=== PATIENT | female | born 1950 | race Hispanic/Latino ===

== ENCOUNTER 2021-03-05 08:12 | Outpatient (CLI) | payer MEDICARE, OTHER, SELFPAY ==
--- NOTE | ~2021-03-05 | MM_ITS ---
EXAMINATION: MM screening [facility] BI w arnol HISTORY: Screening mammogram TECHNIQUE: Craniocaudal and mediolateral oblique 3-D tomosynthesis images were obtained and synthetic 2-D images were generated. CAD analysis was submitted and interpreted. COMPARISON: 10/20/2018, 11/07/2015, 07/26/2014 BREAST PARENCHYMAL COMPOSITION: There are scattered areas of fibroglandular density. FINDINGS: There is stable architectural distortion in the right breast at the site of prior excisiona l biopsy. There is no evidence of suspicious mass, calcification, or architectural distortion to sugg est malignancy in either breast. There has been no suspicious interval change. IMPRESSION: 1. No mammographic evidence of malignancy. 2. Recommend routine screening mammography in one year. BI-RADS Category 2: Benign finding(s). Reviewed, dictated and finalized at location A.
--- NOTE | ~2021-03-05 | DEXA_ITS ---
Bone Density Report Name: Casie Jessica Age: 70 Sex: Female Ethnicity: White Date of : 1950 Indication: postmenopausal osteoporosis; monitoring treatment; height loss; Referring Provider: ADENIKE HOLLOWAY Study: Bone densitometry was performed. Exam Date: March 05, 2021 Accession number: [id number] Bone Density: Region BMD T-score Z-score Classification AP Spine (L1-L4) 0.812 -2.1 -0.1 Osteopenia Femoral Neck (Left) 0.662 -1.7 0.1 Osteopenia Total Hip (Left) 0.768 -1.4 0.0 Osteopenia Total Hip Bilateral Avg 0.759 -1.5 -0.1 Osteopenia Femoral Neck (Right) 0.679 -1.5 0.2 Osteopenia Total Hip (Right) 0.748 -1.6 -0.1 Osteopenia World Health Organization criteria for BMD impression classify patients as: Normal (T-score at or above -1.0), Osteopenia (T-score between -1.0 and -2.5), or Osteoporosis (T-score at or below -2.5). 10-year Fracture Risk: FRAX not reported because: Treated for osteoporosis Previous Exams: Region Exam Age BMD T-score BMD Change BMD Change Date g/cm2 vs Baseline vs Previous AP Spine(L1-L4) 03/05/2021 70 0.812 -2.1 0.081(11.0%)# 0.046(6.1%)* 10/20/2018 67 0.765 -2.6 0.034(4.7%)# 0.022(3.0%) 09/27/2016 65 0.743 -2.8 0.012(1.6%)# -0.017(-2.2%) 07/26/2014 63 0.760 -2.6 0.029(3.9%)# -0.007(-0.9%)# 03/17/2012 61 0.767 -2.5 0.035(4.8%)# 0.035(4.8%)# 01/08/2008 57 0.731 -2.9 Total Hip(Left) 03/05/2021 70 0.768 -1.4 0.027(3.7%)# 0.008(1.0%) 10/20/2018 67 0.761 -1.5 0.020(2.7%)# -0.004(-0.5%) 09/27/2016 65 0.765 -1.5 0.024(3.2%)# -0.010(-1.2%) 07/26/2014 63 0.774 -1.4 0.033(4.5%)# 0.014(1.9%)# 03/17/2012 61 0.760 -1.5 0.019(2.6%)# 0.019(2.6%)# 01/08/2008 57 0.741 -1.6 Total Hip(Right) 03/05/2021 70 0.748 -1.6 0.002(0.2%)# -0.013(-1.7%) 10/20/2018 67 0.761 -1.5 0.015(2.0%)# 0.048(6.7%)* 09/27/2016 65 0.713 -1.9 -0.033(-4.4%)# 0.009(1.3%) 07/26/2014 63 0.704 -2.0 -0.042(-5.7%)# -0.042(-5.6%)# 03/17/2012 61 0.746 -1.6 0.000(0.0%)# 0.000(0.0%)# 01/08/2008 57 0.746 -1.6 *Denotes significance at 95% confidence level, LSC for AP Spine = 0.022 g/cm2, LSC for Total Hip = 0.027 g/cm2 Clinical Information Provided by Patient: Is being treated for osteoporosis Has used the following medications: Prolia (i.e. denosumab), Vitamin D Patient maximum height was 64 Menopause Age: 54 Drinks caffeinated beverages Onset of menses at age 13 Nu
== END 2021-03-05 08:13 | disposition home or self-care (01) ==
LOC: ANHIMG 08:14
PROVIDERS: PCP Physician Assistant; Visit Provider Obstetrics & Gynecology
DX: Z12.31 Encounter for screening mammogram for malignant neoplasm of breast (principal); M81.0 Age-related osteoporosis without current pathological fracture; M85.88 Other specified disorders of bone density and structure, other site; M85.852 Other specified disorders of bone density and structure, left thigh; M85.851 Other specified disorders of bone density and structure, right thigh
CPT/HCPCS: 77063; 77067; 77080

== ENCOUNTER 2021-07-10 16:41 | Emergency (ER) | payer MEDICARE, OTHER, SELFPAY ==
--- NOTE | ~2021-07-10 | CT_ITS ---
EXAMINATION: CT chest abdomen pelvis w con DATE: 07/10/2021 18:54 INDICATION: Chest and abdominal pain. TECHNIQUE: Computed tomography (CT) of the chest, abdomen, and pelvis was performed with 100 mL Omnip aque 350 intravenous contrast. Automated exposure control and iterative reconstruction technique were employed. The dose-length product was 364.40 mGy-cm. COMPARISON: None FINDINGS: CHEST CT: The visualized portions of the lung bases demonstrate mild atelectasis. No pleural effusion. The hear t size is normal. There are coronary artery calcifications. No pericardial effusion. There is a chron ic compression fracture of T8. ABDOMEN/PELVIS CT: There are cysts in the liver measuring up to 1.4 cm. The gallbladder, spleen, pancreas, and adrenal g lands are normal. There are cysts in the kidneys measuring up to 14 mm on the left. There is a 2.0 cm mass in the cervix of the uterus. There are no dilated loops of bowel. There is diverticulosis of th e colon without evidence of diverticulitis. The appendix is normal. There are no pathologically enlar ged lymph nodes. There is no free intraperitoneal fluid. There is severe lower lumbar spondylosis. IMPRESSION: 1. 2.0 cm mass in the cervix of the uterus suspicious for malignancy. Reviewed, dictated and finalized at location A. T OPERATIONS CLERK
[2021-07-10 16:48] VITALS: BP 115/75; PULSE 89; RESP 14; TEMP 37.2; O2SAT 98
[2021-07-10 17:50] LABS: Basophils Percent Auto 0.3 % (0.2-1.2); Eosinophils Absolute Auto 0.2 K/mm3 (0-0.3); Eosinophils Percent Auto 2.4 % (0-4.4); Hematocrit 37.4 % (37.0-47.0); Hemoglobin 12.5 g/dL (12.0-15.0); Immature Granulocyte Absolute 0.02 K/mm3 (0.00-0.031); Immature Granulocyte Percent A 0.3 % (0-0.5); Lymphocytes Absolute Auto 2.18 K/mm3 (0.9-3.2); Lymphocytes Percent Auto 34.9 % (18.3-44.2); Mean Corpuscular HGB Conc 33.4 g/dl (32-36); Mean Corpuscular Volume 89.7 fl (80-100); Mean Platelet Volume 8.1 fl (7.4-10.4); Monocytes Absolute Auto 0.5 K/mm3 (0.1-0.6); Monocytes Percent Auto 8.7 % (2.6-8.5); Neutrophils Absolute Auto 3.3 K/mm3 (1.3-6.7); Neutrophils Percent Auto 53.4 % (45.5-73.1); Platelet Count Result 251 k/mm3 (150-375); Red Blood Count 4.17 M/mm3 (4.2-5.4); Red Cell Distribution Width 14.6 % (11.5-14.5); White Blood Count 6.2 K/mm3 (4.5-10.0)
[2021-07-10 18:02] LABS: Alanine Aminotransferase 20 U/L (4-35); Albumin Level 4.4 g/dL (3.5-5.1); Alkaline Phosphatase 115 U/L (38-126); Anion Gap 8 mmol/L (8-16); Aspartate Amino Transferase 26 U/L (14-36); Bilirubin,Total 0.1 mg/dL (0.2-1.3); Blood Urea Nitrogen 17 mg/dL (7-17); Calcium 9.4 mg/dL (8.4-10.2); Carbon Dioxide 23 mmol/L (22-30); Chloride 109 mmol/L (98-107); Estimated Glomerular Filt Rate > 60; Glucose 103 mg/dL (65-110); Lipase 151 U/L (23-300); Potassium 3.9 mmol/L (3.4-5.0); Sodium 140 mmol/L (137-145)
[2021-07-10 18:22] LABS: Add Urine Microscopic? YES; Appearance Urine Clear (Clear); Bilirubin Urine Negative (Negative); Blood Urine Negative (Negative); Color Urine Yellow (Yellow); Glucose Urine UA Negative (Negative); Ketones Urine Negative (Negative); Leukocyte Esterase Ur Negative LEU/UL (Negative); Mucus Urine Rare /lpf; Nitrate Urine Negative (Negative); Protein Urine Negative (Negative); Specific Grav Ur 1.021 (1.001-1.035); Squamous Epithelial Cell Urine Rare /hpf (Few); WBC Urine 0-3 /hpf
--- NOTE | 2021-07-10 18:33 | ECG_ITS ---
Measurements Intervals Alexis Rate: 65 P: 16 OH: 165 QRS: 5 QRSD: 98 T: 15 QT: 419 QTc: 436 Interpretive Statements SINUS RHYTHM NORMAL ECG Electronically Signed On 07-10-2021 20:04:47 PATIENT SERVICES MANAGER by Bay Cabello D.O.
--- NOTE | 2021-07-10 18:33 | ED.ABDPAIN ---
HPI - Abdominal Pain General Chief Complaint: Abdominal Pain Stated Complaint: abd pain Time Seen by Provider: 07/10/21 17:15 Source: patient Mode of arrival: ambulatory Limitations: no limitations History of Present Illness HPI narrative: Patient presents for evaluation of pain in bilateral lower ribs for the last week. She states the pain is intermittent, and described as the sensation of a muscle tightening when you run too fast rated 7/10 in severity. Pain is more noticeable at times including when laying down, with certain movements and while sitting in a chair as she currently is. She denies any fever, chills, nausea, vomiting, change in bowel pattern, urinary symptoms. She states that she had started to workout using an exercise program VS assume the week prior. She had performed exercise Friday, , Friday of that week. The following Friday she exercised and Friday she implemented the use of some type of abdominal binder for support. She states that she on.y was able to complete half the exercise program that day as pain was interfering. She has taken some NSAIDs for pain and has also taken a bath in epsom salt without much improvement. She does consume wine but denies any tobacco or marijuana use. Surgical history for c section and what sounds to be a bladder sling. Related Data Home Medications Medication Instructions Recorded Confirmed coenzyme Q10 [CoQ-10] 30 mg PO DAILY 09/22/19 10/12/20 cyanocobalamin (vitamin B-12) 1,000 mcg PO DAILY 09/22/19 10/12/20 [Vitamin B-12] rv-qd-ktrx-FA-Ca carb-vit K 1 tablet PO DAILY 09/22/19 10/12/20 [One-A-Day Womens Formula] pyridoxine (vitamin B6) 25 mg PO DAILY 09/22/19 10/12/20 simvastatin 20 mg PO DAILY 09/22/19 10/12/20 cholecalciferol (vitamin D3) 125 125 mcg PO DAILY 10/12/20 10/12/20 mcg (5,000 unit) capsule turmeric root extract 500 mg 500 mg PO DAILY 10/12/20 10/12/20 capsule valsartan-hydrochlorothiazide 1 tablet PO DAILY 07/10/21 Allergies Allergy/AdvReac Type Severity Reaction Status Date / Time No Known Allergies Allergy Verified 07/10/21 17:01 Review of Systems Review of Systems: CONSTITUTIONAL: Denies fever, chills, or sweats. EYES: Denies visual changes, redness, or discharge. ENT: Denies rhinorrhea, congestion, sore throat, or otalgia. CARDIOVASCULAR: Reports pain in bilateral lower ribs anteriorly. Denies chest pain otherwise. Denies palpitations, or edema. RESPIRATORY: Denies cough or dyspnea. GASTROINTESTINAL: Reports pain in bilateral upper quadrants. Denies nausea, vomiting, or diarrhea. GENITOURINARY: Denies dysuria or hematuria. SKIN: Denies rash or itching. MUSCULOSKELETAL: Denies back pain, joint pain, or myalgia. NEUROLOGIC: Denies headache, numbness, dizziness, or weakness. PSYCHIATRIC: Denies anxiety or depression. PMFSH Past Medical History Medical History High cholesterol Hypertension Surgical History Surgical History H/O breast surgery History of 2 sections Family History Family History Father Family history of elevated blood lipids Cerebrovascular accident Mother Cerebrovascular accident, Onset Age: 199 Patient's mother is Social History Social History Smoking status: Never smoker Second hand tobacco smoke exposure: No Alcohol intake: current Substance use: never Living arrangements: with family Gender identity (if verbalized by the patient): Female Sexual Orientation (if Verbalized by the Patient): Straight or Heterosexual Spiritual care concerns: No Exam Narrative: GENERAL: Well-appearing, well-nourished, and in no acute distress. HEAD: Normocephalic, atraumatic. EYES: PERRLA and EOMI. ENT: Nares clear, no
[2021-07-10 19:15] LABS: Creatine Kinase 51 U/L (30-135)
[2021-07-10 19:16] LABS: Lactic Acid Reflex 0.7 mmol/L (0.7-2.1)
[2021-07-10 19:28] LABS: Troponin I < 0.012 ng/mL (0.000-0.034)
[2021-07-10 20:31] VITALS: BP 117/78; PULSE 90; RESP 18; O2SAT 98
[2021-07-10] MEDS: HYDROcodone/acetaminophen (*CRX) 5-325 MG TABLET 1 TAB PO (20:37)
== END 2021-07-10 20:47 | disposition home or self-care (01) ==
PROVIDERS: Emergency Medicine; Emergency Provider Nurse Practitioner; PCP Physician Assistant
DX: E78.00 Pure hypercholesterolemia, unspecified (principal); N85.8 Other specified noninflammatory disorders of uterus; I10 Essential (primary) hypertension; R07.89 Other chest pain
CPT/HCPCS: 36415; 71260; 74177; 80053; 81001; 82550; 83605; 83690; 84484; 85025; 93005; 99284; A9270; Q9967

== ENCOUNTER 2021-07-16 12:20 | Outpatient (CLI) | payer MEDICARE, SELFPAY ==
--- NOTE | ~2021-07-16 | US_ITS ---
EXAMINATION: US pelvic complete w TV DATE: 07/16/2021 13:01 INDICATION: Cervical mass on recent CT TECHNIQUE: Multiple transabdominal and endovaginal sonographic images of the pelvis were obtained. COMPARISON: CT, 07/10/2021 FINDINGS: The uterus measures 5.7 x 3.6 x 1.9 cm. The endometrial complex measures 1 mm. There is a 2 .0 x 2.4 x 1.8 cm cystic lesion of the cervix. No abnormal associated vascularity is identified. The ovaries are not visualized however no adnexal abnormality is seen. There is no free fluid in the pelv is. IMPRESSION: 1. Cystic lesion of the cervix. Direct visualization is recommended. Reviewed, dictated and finalized at location A. TRICAL LINE WORKER
== END 2021-07-16 12:21 | disposition home or self-care (01) ==
LOC: ANHIMG 12:30
PROVIDERS: PCP Physician Assistant; Visit Provider Obstetrics & Gynecology
DX: N85.8 Other specified noninflammatory disorders of uterus (principal)
CPT/HCPCS: 76830; 76856

== ENCOUNTER 2022-03-20 15:12 | Outpatient (CLI) | payer MEDICARE, OTHER, SELFPAY ==
--- NOTE | ~2022-03-20 | MM_ITS ---
EXAMINATION: MM screening [facility] BI w arnol HISTORY: Screening TECHNIQUE: Craniocaudal and mediolateral oblique 3-D tomosynthesis images were obtained and synthetic 2-D images were generated. CAD analysis was submitted and interpreted. COMPARISON: No prior mammogram is available for comparison at this institution. BREAST PARENCHYMAL COMPOSITION: Breast composed of scattered areas of fibroglandular density FINDINGS: The right breast is stable without evidence for malignancy. There is a new cluster of indet erminate calcifications in the upper outer quadrant of the left breast. IMPRESSION: 1. New cluster of indeterminate left breast calcifications, upper outer quadrant in the middle third. 2. Magnification views are recommended. BI-RADS Category 0: Incomplete: Needs additional imaging evaluation. Reviewed, dictated and finalized at location A. IMPRESSION: 1. New cluster of indeterminate left breast calcifications, upper outer quadran t in the middle third. 2. Magnification views are recommended. BI-RADS Category 0: Incomplete: Needs additional imaging evaluation.
== END 2022-03-20 15:13 | disposition home or self-care (01) ==
PROVIDERS: PCP Physician Assistant; Visit Provider Obstetrics & Gynecology
DX: Z12.31 Encounter for screening mammogram for malignant neoplasm of breast (principal); R92.8 Other abnormal and inconclusive findings on diagnostic imaging of breast
CPT/HCPCS: 77063; 77067

== ENCOUNTER 2022-04-01 13:01 | Outpatient (CLI) | payer MEDICARE, OTHER, SELFPAY ==
--- NOTE | ~2022-04-01 | MMUS_ITS ---
EXAMINATION: MM diagnostic [facility] LT w arnol, US breast LT limited HISTORY: Follow-up left breast asymmetry TECHNIQUE: Additional 3-D tomosynthesis images of the left breast were performed and synthetic 2-D im ages were generated. CAD analysis was submitted and interpreted. High resolution Limited left breast ultrasound was performed. COMPARISON: 03/20/2022 and 03/05/2021 BREAST PARENCHYMAL COMPOSITION: Breast composed of scattered areas of fibroglandular density FINDINGS: MAMMOGRAPHIC FINDINGS: There are no discrete masses are identified. There is focal asymmetry superiorly in the left breast o n mediolateral view. No suspicious calcifications or architectural distortion. ULTRASOUND: Limited left breast ultrasound: Normal heterogeneous echotexture without focal solid or cystic mass. IMPRESSION: 1. Probable benign focal asymmetry superiorly in the left breast on mediolateral view. No sonographic correlate. 2. Recommend 6 month follow-up diagnostic left mammogram. BI-RADS category 3, probably benign findings. Reviewed, dictated and finalized at location A. IMPRESSION: 1. Probable benign focal asymmetry superiorly in the left breast on mediolatera l view. No sonographic correlate. 2. Recommend 6 month follow-up diagnostic left mammogram. BI-RADS category 3, probably benign findings.
== END 2022-04-01 13:02 | disposition home or self-care (01) ==
LOC: ANHIMG 13:03
PROVIDERS: PCP Physician Assistant; Visit Provider Obstetrics & Gynecology
DX: R92.8 Other abnormal and inconclusive findings on diagnostic imaging of breast (principal)
CPT/HCPCS: 76642; 77061; 77065; G0279

== ENCOUNTER 2022-05-28 10:51 | Emergency (ER) | payer MEDICARE, OTHER, SELFPAY ==
[2022-05-28 11:15] VITALS: BP 117/83; PULSE 87; RESP 16; TEMP 37.4; O2SAT 98
--- NOTE | 2022-05-28 11:36 | ED.URI ---
HPI - URI/Sore Throat General Chief Complaint: Upper Respiratory Infection Stated Complaint: productive cough; Time Seen by Provider: 05/28/22 11:20 Source: patient Mode of arrival: ambulatory Limitations: no limitations History of Present Illness HPI Narrative: Ms. Jason is a 71-year-old female patient presenting to clinic today with complaints of cough, sore throat, and nasal congestion x1 week. She denies any fever or chills. She has been taking nafp-shk-vugadho Robitussin for her symptoms. States she has also noted some wheezing at night. She denies any known exposure to anybody with COVID, flu, or strep MD elicited complaint: cough, sore throat, rhinorrhea and nasal congestion Related Data Home Medications Medication Instructions Recorded Confirmed coenzyme Q10 30 mg capsule (CoQ-10) 30 mg PO DAILY 09/22/19 05/28/22 cyanocobalamin (vitamin B-12) 1,000 mcg PO DAILY 09/22/19 05/28/22 1,000 mcg tablet (Vitamin B-12) hgnghhgh-avy-ufrr-FA-Ca carb-vit K 1 tablet PO DAILY 09/22/19 05/28/22 18 mg iron-400 mcg-500 mg tablet (One-A-Day Womens Formula) pyridoxine (vitamin B6) 25 mg 25 mg PO DAILY 09/22/19 05/28/22 tablet cholecalciferol (vitamin D3) 125 125 mcg PO DAILY 10/12/20 05/28/22 mcg (5,000 unit) capsule turmeric root extract 500 mg 500 mg PO DAILY 10/12/20 05/28/22 capsule valsartan 160 1 tablet PO DAILY 07/10/21 05/28/22 mg-hydrochlorothiazide 12.5 mg tablet simvastatin 40 mg tablet 40 mg PO DAILY 05/28/22 05/28/22 teriparatide 20 mcg/dose (600 20 mcg subcut DIRECTED 05/28/22 05/28/22 mcg/2.4 mL) subcutaneous pen injector (Forteo) Allergies Allergy/AdvReac Type Severity Reaction Status Date / Time No Known Allergies Allergy Verified 05/28/22 11:30 Review of Systems Review of Systems: Pertinent positives per HPI. Patient denies any fever, chills, rash, headache, visual changes, dizziness, cough, shortness of breath, chest pain, palpitations, nausea, vomiting, diarrhea, constipation, abdominal pain, or any urinary issues. [facility] Past Medical History Medical History High cholesterol Hypertension Surgical History Surgical History H/O breast surgery History of 2 sections History of bladder surgery Family History Family History Father Family history of elevated blood lipids Cerebrovascular accident Mother Cerebrovascular accident, Onset Age: 199 Patient's mother is Social History Social History Smoking status: Never smoker Second hand tobacco smoke exposure: No Alcohol intake: current Substance use: never Gender identity (if verbalized by the patient): Female Sexual Orientation (if Verbalized by the Patient): Straight or Heterosexual Spiritual care concerns: No Comments At the time of my signature, I reviewed and agree with the nursing past medical, surgical, social, and family history. There is no relevant family history pertinent to the patient complaint. Exam Narrative: General: Well-developed, well nourished, in no apparent distress Head: Normocephalic, atraumatic Eyes: Pupils equally round and reactive to light bilaterally, EOM intact, sclera and conjunctive clear, no discharge, lids normal Ears: TMs intact and dull, ear canals clear, no drainage, grossly hearing normal. Nose: Nares patent, clear nasal discharge, no inflammation, no sinus tenderness. Mouth: Oral pharynx without lesions or masses, good dentition, MMM. Postnasal drip Neck: Supple, trachea midline, no enlargement of anterior or posterior cervical nodes, no thyroid masses or goiter palpable. Cardio: Regular rate and rhythm, s1 and s2 normal, no murmur appreciated. Resp: Clear to auscultation bilateral
== END 2022-05-28 11:52 | disposition home or self-care (01) ==
PROVIDERS: Emergency Provider Nurse Practitioner Family; PCP Physician Assistant
DX: J06.9 Acute upper respiratory infection, unspecified (principal); J02.9 Acute pharyngitis, unspecified; E78.00 Pure hypercholesterolemia, unspecified; I10 Essential (primary) hypertension
CPT/HCPCS: 99213; G0463

== ENCOUNTER 2022-09-09 11:22 | Outpatient (CLI) | payer MEDICARE, SELFPAY ==
--- NOTE | ~2022-09-09 | MMUS_ITS ---
EXAMINATION: MM diagnostic teresa LT w arnol, US breast LT limited HISTORY: Six-month follow-up of probable benign focal asymmetry superior left breast on MLO view with out sonographic correlate TECHNIQUE: Additional 3-D tomosynthesis images of the left breast were performed and synthetic 2-D im ages were generated. CAD analysis was submitted and interpreted. High resolution upper outer and lowe r-outer quadrant left breast ultrasound was performed. COMPARISON: 04/01/2022 diagnostic left mammogram and limited left breast ultrasound BREAST PARENCHYMAL COMPOSITION: There are scattered areas of fibroglandular density. FINDINGS: MAMMOGRAPHIC FINDINGS: No suspicious mass, architectural distortion, malignant calcification, skin thickening or retraction is evident. ULTRASOUND: There is a simple cyst measuring 4.9 x 4 x 5.6 mm in the subareolar area at 3:00. No suspicious mass or shadowing of the outer half of the left breast is noted. IMPRESSION: 1. Benign finding 2. Routine annual mammographic screening is recommended BI-RADS Category 2: Benign finding(s). Reviewed, dictated and finalized at location A. IMPRESSION: 1. Benign finding 2. Routine annual mammographic screening is recommended BI-RADS Category 2: Benign finding(s).
== END 2022-09-09 11:23 | disposition home or self-care (01) ==
LOC: ANHIMG 11:23
PROVIDERS: PCP Physician Assistant; Visit Provider Obstetrics & Gynecology
DX: R92.8 Other abnormal and inconclusive findings on diagnostic imaging of breast (principal)
CPT/HCPCS: 76642; 77061; 77065; G0279

== ENCOUNTER 2022-12-23 02:15 | Day surgery (SDC) | payer MEDICARE, SELFPAY ==
[2022-12-10 14:11] VITALS: BMI 24.7
--- NOTE | 2022-12-20 17:23 | WPDANESEPP ---
Anes - Eval Pre Procedure Procedure: Operation Date: 12/23/22 08:30 Proposed Procedures p Screening Colonoscopy - Freddy Blackmon MD Date/Time: 12/20/22 17:23 Pre Op Diagnosis: neoplasm screening Patient Data Age: 72 Gender: F Height: 1.57 m Weight: 61.5 kg Allergies Allergy/AdvReac Type Severity Reaction Status Date / Time No Known Allergies Allergy Verified 12/10/22 14:06 Home Medications Medication Instructions Recorded Confirmed Type coenzyme Q10 30 mg capsule (CoQ-10) 30 mg PO DAILY 09/22/19 12/10/22 History cyanocobalamin (vitamin B-12) 1,000 mcg PO DAILY 09/22/19 12/10/22 History 1,000 mcg tablet (Vitamin B-12) zvwyxjyw-fwj-nwxq-FA-Ca carb-vit K 1 tablet PO DAILY 09/22/19 12/10/22 History 18 mg iron-400 mcg-500 mg tablet (One-A-Day Womens Formula) pyridoxine (vitamin B6) 25 mg 25 mg PO DAILY 09/22/19 12/10/22 History tablet cholecalciferol (vitamin D3) 125 125 mcg PO DAILY 10/12/20 12/10/22 History mcg (5,000 unit) capsule valsartan 160 0.5 tablet PO DAILY 07/10/21 12/10/22 History mg-hydrochlorothiazide 12.5 mg tablet simvastatin 40 mg tablet 40 mg PO DAILY 05/28/22 12/10/22 History magnesium gluconate 27 mg 27 mg PO DAILY 10/15/22 12/10/22 History magnesium (500 mg) tablet (Mag-G) sodium,potassium,mag sulfates 17.5 See Rx Instructions PO .COMPLEX 11/25/22 Rx gram-3.13 gram-1.6 gram oral soln #354 mL (Suprep Bowel Prep Kit) Patient hx anesthesia problems: none Family hx anesthesia problems: none Results Review: All pre-operative results and documents have been reviewed as part of the pre-operative evaluation. [facility] Past Medical History Medical History Cervical mass Hemorrhoid High cholesterol History of osteoporosis Hypertension Surgical History Surgical History H/O breast surgery History of 2 sections History of bladder surgery Family History Family History Father Family history of elevated blood lipids Cerebrovascular accident Mother Cerebrovascular accident, Onset Age: 199 Patient's mother is Social History Social History Smoking status: Never smoker Second hand tobacco smoke exposure: No Alcohol intake: current Alcohol use details: Socially Substance use: never Substance use type: does not use Lack of Transportation: No Lack of Food: Never True Current Housing: I Have Housing Concerned About Future Housing: No Difficulty Paying Gas/Electric Bills: No Difficulty Paying for Meds: No Currently Unemployed: No Education: Master's Degree or Higher Difficulty w/ Childcare or Family Care: No Living arrangements: other Additional living arrangements comments: With spouse Freddy Gender identity (if verbalized by the patient): Female Sexual Orientation (if Verbalized by the Patient): Straight or Heterosexual Spiritual care concerns: No Exam Day of Procedure 12/20/22 17:23
[2022-12-23 07:07] VITALS: BP 121/81; PULSE 72; RESP 16; TEMP 36.4; O2SAT 98
[2022-12-23] MEDS: LACTATED RINGERS 1,000 ML 150 ML IV CONT (07:09)
--- NOTE | 2022-12-23 08:02 | PM.HPGS ---
History of Present Illness History of Present Illness Consent: Risks, benefits, and alternatives have been discussed and questions answered. Patient agrees to proceed with procedure. Chief complaint: neoplasm screening Narrative: Casie Jessica is a 72 year old female Presents for screening colonoscopy. Patient's current weight appetite and bowel movements are normal. Patient denies abdominal pain. She has had no bleeding. Family history noncontributory. Previous colonoscopy in 2018 revealed 2 adenomatous colon polyps. She had additional colon polyp in 2007. Family history is noncontributory. Patient presents today for neoplasia screening. Review of Systems Review of Systems: Review of systems noncontributory. [facility] Past Medical History Medical History Cervical mass Hemorrhoid High cholesterol History of osteoporosis Hypertension Surgical History Surgical History H/O breast surgery History of 2 sections History of bladder surgery Family History Family History Father Family history of elevated blood lipids Cerebrovascular accident Mother Cerebrovascular accident, Onset Age: 199 Patient's mother is Social History Social History Smoking status: Never smoker Second hand tobacco smoke exposure: No Alcohol intake: current Alcohol use details: Socially Substance use: never Substance use type: does not use Lack of Transportation: No Lack of Food: Never True Current Housing: I Have Housing Concerned About Future Housing: No Difficulty Paying Gas/Electric Bills: No Difficulty Paying for Meds: No Currently Unemployed: No Education: Master's Degree or Higher Difficulty w/ Childcare or Family Care: No Living arrangements: other Additional living arrangements comments: With spouse Freddy Gender identity (if verbalized by the patient): Female Sexual Orientation (if Verbalized by the Patient): Straight or Heterosexual Spiritual care concerns: No Meds Home Medications and Allergies Home Medications Medication Instructions Recorded Confirmed Type coenzyme Q10 30 mg capsule (CoQ-10) 30 mg PO DAILY 09/22/19 12/23/22 History cyanocobalamin (vitamin B-12) 1,000 mcg PO DAILY 09/22/19 12/23/22 History 1,000 mcg tablet (Vitamin B-12) bswdpskt-ykz-muhl-FA-Ca carb-vit K 1 tablet PO DAILY 09/22/19 12/23/22 History 18 mg iron-400 mcg-500 mg tablet (One-A-Day Womens Formula) pyridoxine (vitamin B6) 25 mg 25 mg PO DAILY 09/22/19 12/23/22 History tablet cholecalciferol (vitamin D3) 125 125 mcg PO DAILY 10/12/20 12/23/22 History mcg (5,000 unit) capsule valsartan 160 0.5 tablet PO DAILY 07/10/21 12/23/22 History mg-hydrochlorothiazide 12.5 mg tablet simvastatin 40 mg tablet 40 mg PO DAILY 05/28/22 12/23/22 History magnesium gluconate 27 mg 27 mg PO DAILY 10/15/22 12/23/22 History magnesium (500 mg) tablet (Mag-G) Allergies Allergy/AdvReac Type Severity Reaction Status Date / Time No Known Allergies Allergy Verified 12/23/22 07:05 Vital Signs Vital Signs - 24 hr 12/23/22 07:07 Temperature 97.6 F Pulse Rate 72 Respiratory Rate 16 Blood Pressure 121/81 Pulse Oximetry 98 Oxygen Delivery Room Air Exam Narrative: Physical exam reveals patient to be alert. Vital signs stable. HEENT exam is unremarkable. Patient is anicteric. Lungs are clear to auscultation and percussion. Heart is without murmur or extra sounds. Abdomen bowel sounds are present soft nontender with no organomegaly. Digital external rectal exam is normal. Assessment and Plan Assessment and plan (1) Encounter for screening colonoscopy: Code(s): Z12.11 - Encounter for screening for malignant n
--- NOTE | 2022-12-23 08:06 | P.PNAN_ITS ---
Anes - Eval Final PreProcedure Day of Procedure 12/23/22 08:06 Patient weight: normal Heart: regular rate and rhythm Lungs: clear to auscultation Airway: Mallampati scale class II Neurological: alert and oriented Last oral intake: >/= 8 hours ASA classification: II Emergent: no Anesthetic plan: proceed Anesthesia type and monitoring: general GIVS and standard monitoring Results Review: All pre-operative results and documents have been reviewed as part of the pre- operative evaluation. Informed Consent: The patient's anesthetic plan and its attendant risks and benefits were discussed with the patient/family/POA. Questions were solicited and answers provided to the satisfaction of the patient/family/POA.
[2022-12-23 08:58] VITALS: BP 101/61; PULSE 57; RESP 14; O2SAT 97
[2022-12-23 09:08] VITALS: BP 100/63; PULSE 59; RESP 19; O2SAT 98
[2022-12-23 09:18] VITALS: BP 112/73; PULSE 55; RESP 18; O2SAT 99
== END 2022-12-23 09:26 | disposition home or self-care (01) ==
PROVIDERS: PCP Physician Assistant; Visit Provider Internal Medicine Gastroenterology
PROC: 0DJD8ZZ Inspection of Lower Intestinal Tract, Via Natural or Artificial Opening Endoscopic (ICD-10-PCS; CPT 45378; principal; 2022-12-23 08:30)
DX: Z12.11 Encounter for screening for malignant neoplasm of colon (principal); D12.2 Benign neoplasm of ascending colon; K57.30 Diverticulosis of large intestine without perforation or abscess without bleeding; K64.8 Other hemorrhoids; E78.00 Pure hypercholesterolemia, unspecified; I10 Essential (primary) hypertension
CPT/HCPCS: 45385; 88305; J2704; J7120

== ENCOUNTER 2023-01-12 18:54 | Emergency (ER) | payer MEDICARE, SELFPAY ==
--- NOTE | ~2023-01-12 | XR_ITS ---
EXAMINATION: XR toe 5th LT min 2V DATE: 01/12/2023 19:19 INDICATION: Left fifth toe injury and pain. TECHNIQUE: 4 views of left fifth toe were obtained. COMPARISON: None. FINDINGS: There is a transverse fracture of metaphysis of fifth proximal phalanx. The distal fracture fragment demonstrates impaction and 20 degrees lateral angulation. 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 IMPRESSION: 1. Transverse fracture of metaphysis of fifth proximal phalanx. Reviewed, dictated and finalized at location E.
--- NOTE | 2023-01-12 19:14 | ED.LOWEXIN ---
HPI - Extremity Injury (Lower) General Chief Complaint: Extremity Injury, Lower Stated Complaint: INJURED TOE Time Seen by Provider: 01/12/23 19:10 Source: patient, RN notes reviewed and old records reviewed Mode of arrival: ambulatory Limitations: no limitations History of Present Illness HPI Narrative: 72 year female who presets to express care with injury to the left 5th toe when she hit it on a chair leg at home just short interval prior to arrival at clinic. Patient reported that he has increased pain when she ambulates on her foot and is concerned because she is suppose to leave for [place] tomorrow. Patient reports that initially her left 5th toe looked displaced but after she put her sandal on it looks straighter. Patient states that she has applied ice to her 5th toe and she has taken Tylenol for her discomfort. MD complaint: foot injury (5th toe injury) Onset (ago): hour(s) (within past hour) Injury: Left: toes (5th) Type of Injury: blunt Place: home Severity scale (1-10): 9 Exacerbating factors: weight bearing and movement Context: direct blow Treatments prior to arrival: cold therapy and other (Tylenol) Related Data Home Medications Medication Instructions Recorded Confirmed coenzyme Q10 30 mg capsule (CoQ-10) 30 mg PO DAILY 09/22/19 01/12/23 cyanocobalamin (vitamin B-12) 1,000 mcg PO DAILY 09/22/19 01/12/23 1,000 mcg tablet (Vitamin B-12) vfoazcee-dgl-bhum-FA-Ca carb-vit K 1 tablet PO DAILY 09/22/19 01/12/23 18 mg iron-400 mcg-500 mg tablet (One-A-Day Womens Formula) pyridoxine (vitamin B6) 25 mg 25 mg PO DAILY 09/22/19 01/12/23 tablet cholecalciferol (vitamin D3) 125 125 mcg PO DAILY 10/12/20 01/12/23 mcg (5,000 unit) capsule valsartan 160 0.5 tablet PO DAILY 07/10/21 01/12/23 mg-hydrochlorothiazide 12.5 mg tablet simvastatin 40 mg tablet 40 mg PO DAILY 05/28/22 01/12/23 magnesium gluconate 27 mg 27 mg PO DAILY 10/15/22 01/12/23 magnesium (500 mg) tablet (Mag-G) Allergies Allergy/AdvReac Type Severity Reaction Status Date / Time No Known Allergies Allergy Verified 01/12/23 19:03 Review of Systems Review of Systems: CONSTITUTIONAL: Denies fever, chills, or sweats. EYES: Denies visual changes, redness, or discharge. ENT: Denies rhinorrhea, congestion, sore throat, or otalgia. CARDIOVASCULAR: Denies chest pain, palpitations, or edema. RESPIRATORY: Denies cough or dyspnea. GASTROINTESTINAL: Denies abdominal pain, nausea, vomiting, or diarrhea. GENITOURINARY: Denies dysuria or hematuria. SKIN: Denies rash or itching. MUSCULOSKELETAL: Denies back pain,positive for 5th toe pain left foot, or myalgia. NEUROLOGIC: Denies headache, numbness, or weakness. PSYCHIATRIC: Denies anxiety or depression. All systems reviewed & are unremarkable except as noted in HPI and below PMFSH Past Medical History Medical History Cervical mass Hemorrhoid High cholesterol History of osteoporosis Hypertension Surgical History Surgical History H/O breast surgery History of 2 sections History of bladder surgery Family History Family History Father Family history of elevated blood lipids Cerebrovascular accident Mother Cerebrovascular accident, Onset Age: 199 Patient's mother is Social History Social History Smoking status: Never smoker Second hand tobacco smoke exposure: No Alcohol intake: current Alcohol use details: Socially Substance use: never Substance use type: does not use Lack of Transportation: No Lack of Food: Never True Current Housing: I Have Housing Concerned About Future Housing: No Difficulty Paying Gas/Electric Bills: No Difficulty Paying for Meds: No Currently Unemployed: No Education: Master's
[2023-01-12 19:25] VITALS: BP 146/96; PULSE 76; RESP 16; TEMP 36.1; O2SAT 100
== END 2023-01-12 19:47 | disposition home or self-care (01) ==
PROVIDERS: Emergency Provider Registered Nurse; PCP Physician Assistant
DX: S92.512A Displaced fracture of proximal phalanx of left lesser toe(s), initial encounter for closed fracture (principal); W22.03XA Walked into furniture, initial encounter; E78.00 Pure hypercholesterolemia, unspecified; I10 Essential (primary) hypertension; M81.0 Age-related osteoporosis without current pathological fracture
CPT/HCPCS: 73660; 99214; G0463

== ENCOUNTER 2023-03-07 07:50 | Outpatient (CLI) | payer MEDICARE, SELFPAY ==
--- NOTE | ~2023-03-07 | DEXA_ITS ---
Bone Density Report Name: BRITTNEY CARLSON Age: 72 Sex: Female Ethnicity: White Date of : 1950 Indication: osteopenia; monitoring treatment; prior fracture; postmenopausal Referring Provider: ADENIKE HOLLOWAY Study: Bone densitometry was performed. Exam Date: March 07, 2023 Accession number: [id number] Bone Density: Region BMD T-score Z-score Classification AP Spine(L1-L4) 0.784 -2.4 -0.2 Osteopenia Femoral Neck (Left) 0.678 -1.5 0.3 Osteopenia Total Hip (Left) 0.812 -1.1 0.5 Osteopenia Femoral Neck (Right) 0.672 -1.6 0.3 Osteopenia Total Hip (Right) 0.799 -1.2 0.4 Osteopenia Total Hip Mean 0.805 -1.2 0.5 Osteopenia World Health Organization criteria for BMD impression classify patients as: Normal (T-score at or above -1.0), Osteopenia (T-score between -1.0 and -2.5), or Osteoporosis (T-score at or below -2.5). 10-year Fracture Risk: FRAX not reported because: Prior hip or vertebral fracture Treated for osteoporosis Previous Exams: Region Exam Age BMD T-score BMD Change BMD Change Date g/cm2 vs Baseline vs Previous AP Spine (L1-L4) 03/07/2023 72 0.784 -2.4 0.018 (2.3%)# -0.028 (-3.4%) 03/05/2021 70 0.812 -2.1 0.045 (5.9%)# 0.046 (6.1%)* 10/20/2018 67 0.765 -2.6 -0.001 (-0.2%) 0.022 (3.0%) 09/27/2016 65 0.743 -2.8 -0.023 (-3.1%) -0.017 (-2.2%) 07/26/2014 63 0.760 -2.6 -0.007 (-0.9%) -0.007 (-0.9%) 03/17/2012 61 0.767 -2.5 Total Hip(Left) 03/07/2023 72 0.812 -1.1 0.051 (6.8%)# 0.043 (5.6%)* 03/05/2021 70 0.768 -1.4 0.008 (1.1%)# 0.008 (1.0%) 10/20/2018 67 0.761 -1.5 0.001 (0.1%)# -0.004 (-0.5%) 09/27/2016 65 0.765 -1.5 0.005 (0.6%)# -0.010 (-1.2%) 07/26/2014 63 0.774 -1.4 0.014 (1.9%)# 0.014 (1.9%)# 03/17/2012 61 0.760 -1.5 Total Hip(Right) 03/07/2023 72 0.799 -1.2 0.053 (7.2%)# 0.051 (6.9%)* 03/05/2021 70 0.748 -1.6 0.002 (0.3%)# -0.013 (-1.7%) 10/20/2018 67 0.761 -1.5 0.015 (2.0%)# 0.048 (6.7%)* 09/27/2016 65 0.713 -1.9 -0.033 (-4.4%) 0.009 (1.3%) 07/26/2014 63 0.704 -2.0 -0.042 (-5.6%) -0.042 (-5.6%) 03/17/2012 61 0.746 -1.6 *Denotes significance at 95% confidence level, LSC for AP Spine = 0.022 g/cm2, LSC for Total Hip = 0.027 g/cm2 # Denotes dissimilar scan types or analysis methods Clinical Information Provided by Patient: Have had a previous hip or vertebral fracture Has had a low trauma fracture Is being treated for osteoporosis Has used
== END 2023-03-07 07:51 | disposition home or self-care (01) ==
PROVIDERS: PCP Physician Assistant; Visit Provider Obstetrics & Gynecology
DX: Z78.0 Asymptomatic menopausal state (principal); M85.88 Other specified disorders of bone density and structure, other site; M85.852 Other specified disorders of bone density and structure, left thigh; M85.851 Other specified disorders of bone density and structure, right thigh
CPT/HCPCS: 77080

== ENCOUNTER 2023-07-26 03:55 | Emergency (ER) | payer MEDICARE, SELFPAY ==
[2023-07-26 03:57] VITALS: BP 140/80; PULSE 64; RESP 18; TEMP 36.4; O2SAT 99
--- NOTE | 2023-07-26 04:27 | PC.NURSE ---
Patient and family state they cannot wait because they have a daughter at home. They wish to leave and walk out of the waiting room without incident in no apparent distress.
== END 2023-07-26 07:01 | disposition left against medical advice (07) ==
PROVIDERS: PCP Physician Assistant
DX: M79.602 Pain in left arm (principal)
CPT/HCPCS: 99199

== ENCOUNTER 2023-07-26 08:06 | Emergency (ER) | payer MEDICARE, SELFPAY ==
--- NOTE | 2023-07-26 08:09 | ED.EXTPRO ---
HPI - Extremity Problem General Chief complaint: Extremity Problem,Nontraumatic Stated complaint: L ARM PAIN Time Seen by Provider: 07/26/23 08:08 Source: patient Mode of arrival: ambulatory Limitations: no limitations History of Present Illness HPI Narrative: Casie is a 72-year-old female patient presenting to the clinic today with complaints of left arm pain that started last night when she went to bed and at 4:00 a.m. this mornings she went to the ER and they were pack so they waited for a very short amount of time and went home and decided to come into the [facility] for evaluation today. Denies any known injury to the left arm. She denies any chest pain, shortness of breath, visual changes, headache, or dizziness. States that she did do some throwing of a ball with her left arm yesterday and also carried and groceries (gallon of milk). Related Data Home Medications Medication Instructions Recorded Confirmed coenzyme Q10 30 mg capsule (CoQ-10) 30 mg PO DAILY 09/22/19 07/26/23 cyanocobalamin (vitamin B-12) 1,000 mcg PO DAILY 09/22/19 07/26/23 1,000 mcg tablet (Vitamin B-12) jrqlmpsp-ilc-xkvi-FA-Ca carb-vit K 1 tablet PO DAILY 09/22/19 07/26/23 18 mg iron-400 mcg-500 mg tablet (One-A-Day Womens Formula) pyridoxine (vitamin B6) 25 mg 25 mg PO DAILY 09/22/19 07/26/23 tablet cholecalciferol (vitamin D3) 125 125 mcg PO DAILY 10/12/20 07/26/23 mcg (5,000 unit) capsule valsartan 160 0.5 tablet PO DAILY 07/10/21 07/26/23 mg-hydrochlorothiazide 12.5 mg tablet simvastatin 40 mg tablet 40 mg PO DAILY 05/28/22 07/26/23 magnesium gluconate 27 mg 27 mg PO DAILY 10/15/22 07/26/23 magnesium (500 mg) tablet (Mag-G) Allergies Allergy/AdvReac Type Severity Reaction Status Date / Time No Known Allergies Allergy Verified 07/26/23 08:15 Review of Systems Review of Systems: Pertinent positives per HPI. Patient denies any fever, chills, rash, headache, visual changes, dizziness, cough, runny nose, sore throat, shortness of breath, chest pain, palpitations, nausea, vomiting, diarrhea, constipation, abdominal pain, or any urinary issues. [facility] Past Medical History Medical History Cervical mass Hemorrhoid High cholesterol History of osteoporosis Hypertension Surgical History Surgical History H/O breast surgery History of 2 sections History of bladder surgery Family History Family History Father Family history of elevated blood lipids Cerebrovascular accident Mother Cerebrovascular accident, Onset Age: 199 Patient's mother is Social History Social History Smoking status: Never smoker Second hand tobacco smoke exposure: No Alcohol intake: current Alcohol use details: Socially Substance use: never Substance use type: does not use Lack of Transportation: No Lack of Food: Never True Current Housing: I Have Housing Concerned About Future Housing: No Difficulty Paying Gas/Electric Bills: No Difficulty Paying for Meds: No Currently Unemployed: No Education: Master's Degree or Higher Difficulty w/ Childcare or Family Care: No Living arrangements: other Additional living arrangements comments: With spouse Freddy Gender identity (if verbalized by the patient): Female Sexual Orientation (if Verbalized by the Patient): Straight or Heterosexual Spiritual care concerns: No Comments At the time of my signature, I reviewed and agree with the nursing past medical, surgical, social, and family history. There is no relevant family history pertinent to the patient complaint. Exam Narrative: General: Well-developed, well nourished, in no apparent distress Head: Normocephalic, atraumatic. Cardio: Regular
--- NOTE | 2023-07-26 08:17 | ECG_ITS ---
Measurements Intervals [place] Rate: 77 P: 29 VT: 161 QRS: 74 QRSD: 95 T: 39 QT: 416 QTc: 473 Interpretive Statements SINUS RHYTHM NORMAL ECG COMPARED TO ECG 07/10/2021 19:06:42 NO SIGNIFICANT CHANGES Electronically Signed On 07-26-2023 14:44:29 [employer] by Vlad Prajapati M.D.
[2023-07-26 08:18] VITALS: BP 114/89; PULSE 81; RESP 16; TEMP 37; O2SAT 99
== END 2023-07-26 08:46 | disposition home or self-care (01) ==
PROVIDERS: Emergency Provider Nurse Practitioner Family; PCP Physician Assistant
DX: S46.912A Strain of unspecified muscle, fascia and tendon at shoulder and upper arm level, left arm, initial encounter (principal); X50.0XXA Overexertion from strenuous movement or load, initial encounter; E78.00 Pure hypercholesterolemia, unspecified; I10 Essential (primary) hypertension; M81.0 Age-related osteoporosis without current pathological fracture
CPT/HCPCS: 93005; 99213; G0463

== ENCOUNTER 2023-11-12 09:59 | Emergency (ER) | payer MEDICARE, SELFPAY ==
--- NOTE | ~2023-11-12 | XR_ITS ---
Left foot Technique: AP, oblique, and lateral views were obtained. Clinical History: Injury Findings: No acute fracture or dislocation is seen. Osseous alignment is anatomic. Joint spaces are p reserved without erosive or degenerative change. Soft tissues are unremarkable. Impression: Unremarkable left foot radiographs. Reviewed, dictated and finalized at location . Impression: Unremarkable left foot radiographs.
--- NOTE | 2023-11-12 10:04 | ED.LOWEXIN ---
HPI - Extremity Injury (Lower) General Chief Complaint: Extremity Injury, Lower Stated Complaint: L FOOT/TOE INJURY Time Seen by Provider: 11/12/23 10:04 Source: patient Mode of arrival: ambulatory Limitations: no limitations History of Present Illness HPI Narrative: Patient is a 73-year-old female who presents with left 2nd pain in injury. Request drops roughly 30 minutes prior to arrival. Toe started bruised. Patient able to ambulate with pain. Has taken ibuprofen and used Ice Related Data Home Medications Medication Instructions Recorded Confirmed coenzyme Q10 30 mg capsule (CoQ-10) 30 mg PO DAILY 09/22/19 11/12/23 cyanocobalamin (vitamin B-12) 1,000 mcg PO DAILY 09/22/19 11/12/23 1,000 mcg tablet (Vitamin B-12) bqahawqf-myn-ucjx-FA-Ca carb-vit K 1 tablet PO DAILY 09/22/19 11/12/23 18 mg iron-400 mcg-500 mg tablet (One-A-Day Womens Formula) pyridoxine (vitamin B6) 25 mg 25 mg PO DAILY 09/22/19 11/12/23 tablet cholecalciferol (vitamin D3) 125 125 mcg PO DAILY 10/12/20 11/12/23 mcg (5,000 unit) capsule valsartan 160 0.5 tablet PO DAILY 07/10/21 11/12/23 mg-hydrochlorothiazide 12.5 mg tablet simvastatin 40 mg tablet 40 mg PO DAILY 05/28/22 11/12/23 magnesium gluconate 27 mg 27 mg PO DAILY 10/15/22 11/12/23 magnesium (500 mg) tablet (Mag-G) Allergies Allergy/AdvReac Type Severity Reaction Status Date / Time No Known Allergies Allergy Verified 07/26/23 08:15 Review of Systems Review of Systems: All systems reviewed & are unremarkable except as noted in HPI and below Constitutional: Constitutional: Denies body ache(s), Denies chills, Denies fatigue, Denies fever(s), Denies headache(s), Denies malaise and Denies weakness Eyes: Eyes: Denies blurry vision, Denies irritation and Denies loss of vision ENT: Denies otalgia, Denies headache(s), Denies nasal discharge, Denies sinus pain and Denies sore throat Cardiovascular: Cardiovascular: Denies chest pain, Denies irregular heart rhythm and Denies dyspnea Respiratory: Respiratory: Denies dyspnea Gastrointestinal: Gastrointestinal: Denies abdominal pain, Denies melena, Denies hematochezia, Denies diarrhea, Denies nausea and Denies vomiting Musculoskeletal: Musculoskeletal: Denies back pain, Denies myalgias and Reports arthralgias Integumentary/Breasts: Skin/Breast: Denies pruritus and Denies rash Neurologic: Denies headache(s), Denies loss of vision and Denies weakness Psychiatric: Psychiatric: Reports no additional psychiatric complaints Endocrine: Endocrine: Denies fatigue PMFSH Past Medical History Medical History Cervical mass Hemorrhoid High cholesterol History of osteoporosis Hypertension Surgical History Surgical History H/O breast surgery History of 2 sections History of bladder surgery Family History Family History Father Family history of elevated blood lipids Cerebrovascular accident Mother Cerebrovascular accident, Onset Age: 199 Patient's mother is Social History Social History Smoking status: Never smoker Second hand tobacco smoke exposure: No Alcohol intake: current Alcohol use details: Socially Substance use: never Substance use type: does not use Lack of Transportation: No Lack of Food: Never True Current Housing: I Have Housing Concerned About Future Housing: No Difficulty Paying Gas/Electric Bills: No Difficulty Paying for Meds: No Currently Unemployed: No Education: Master's Degree or Higher Difficulty w/ Childcare or Family Care: No Living arrangements: other Additional living arrangements comments: With spouse Freddy Gender identity (if verbalized by the patient): Female Sexual Orientation (if Verbalized by the Patie
[2023-11-12 10:10] VITALS: BP 98/73; PULSE 99; RESP 15; TEMP 36.6; O2SAT 99
== END 2023-11-12 10:49 | disposition home or self-care (01) ==
PROVIDERS: Emergency Provider Nurse Practitioner Family; PCP Physician Assistant
DX: S90.122A Contusion of left lesser toe(s) without damage to nail, initial encounter (principal); W20.8XXA Other cause of strike by thrown, projected or falling object, initial encounter; E78.00 Pure hypercholesterolemia, unspecified; I10 Essential (primary) hypertension; M81.0 Age-related osteoporosis without current pathological fracture
CPT/HCPCS: 73630; 99213; G0463

== ENCOUNTER 2023-12-27 07:12 | Outpatient (CLI) | payer MEDICARE, SELFPAY ==
--- NOTE | ~2023-12-27 | MM_ITS ---
EXAMINATION: MM screening teresa BI w arnol HISTORY: Screening TECHNIQUE: Craniocaudal and mediolateral oblique 3-D tomosynthesis images were obtained and synthetic 2-D images were generated. CAD analysis was submitted and interpreted. COMPARISON: Comparison to multiple prior studies sequentially, with oldest reviewed study dated 12/2015. BREAST PARENCHYMAL COMPOSITION: Not dense: There are scattered areas of fibroglandular density. FINDINGS: There is no evidence of suspicious mass, calcification, or architectural distortion to sugg est malignancy in either breast. There has been no suspicious interval change. IMPRESSION: 1. No mammographic evidence of malignancy. 2. Recommend routine screening mammography in one year. BI-RADS Category 1: Negative Reviewed, dictated and finalized at location B.
== END 2023-12-27 07:13 | disposition home or self-care (01) ==
PROVIDERS: PCP Physician Assistant; Visit Provider Obstetrics & Gynecology
DX: Z12.31 Encounter for screening mammogram for malignant neoplasm of breast (principal)
CPT/HCPCS: 77063; 77067

== ENCOUNTER 2024-07-29 09:30 | Emergency (ER) | payer MEDICARE, SELFPAY ==
--- NOTE | 2024-07-29 09:45 | ED.URI ---
HPI - URI/Sore Throat General Chief Complaint: Upper Respiratory Infection Stated Complaint: SORE THROAT/COLD/COUGH/HEADACHE/CONGESTION Time Seen by Provider: 07/29/24 09:46 Source: patient, family, RN notes reviewed and old records reviewed Mode of arrival: ambulatory Limitations: no limitations History of Present Illness HPI Narrative: 73 year old female who presents to [facility] care with complaints of having some sore throat on Friday and then on Friday she started with cough, nasal congestion,headache, some low grade fever noted. Patient reports that she did home COVID test that was negative. Patient reports that she has been taking Robitussin cough syrup and also Coricidin decongestant. MD elicited complaint: cough, rhinorrhea, nasal congestion, sinus pain and other (headache) Onset (ago): day(s) (4) Able to tolerate fluids by mouth: Yes Treatments prior to arrival: other (Coricidin, Robitussin) Related Data Home Medications ?Medication ?Instructions ?Recorded ?Confirmed ?Last Taken ?Type coenzyme Q10 30 mg capsule (CoQ-10) 30 mg PO DAILY 09/22/19 07/29/24 Unknown History cyanocobalamin (vitamin B-12) 1,000 mcg PO DAILY 09/22/19 07/29/24 Unknown History 1,000 mcg tablet (Vitamin B-12) vpvjyode-dqa-wfro-FA-Ca carb-vit K 1 tablet PO DAILY 09/22/19 07/29/24 Unknown History 18 mg iron-400 mcg-500 mg tablet (One-A-Day Womens Formula) pyridoxine (vitamin B6) 25 mg 25 mg PO DAILY 09/22/19 07/29/24 Unknown History tablet cholecalciferol (vitamin D3) 125 125 mcg PO DAILY 10/12/20 07/29/24 Unknown History mcg (5,000 unit) capsule magnesium gluconate 27 mg 27 mg PO DAILY 10/15/22 07/29/24 Unknown History magnesium (500 mg) tablet (Mag-G) biotin 1 mg capsule 1 mg PO DAILY 05/06/24 07/29/24 Unknown History minoxidil .Route 05/06/24 05/06/24 Unknown History spinulinia .Route 05/06/24 05/06/24 Unknown History simvastatin 40 mg tablet mg 07/29/24 Unknown History Allergies Allergy/AdvReac Type Severity Reaction Status Date / Time No Known Allergies Allergy Verified 07/29/24 09:47 Review of Systems Review of Systems: CONSTITUTIONAL: Reports malaise, chills, sweats, or fever. EYES: Denies visual changes, redness, or discharge. ENT: Reports rhinorrhea, congestion, sinus pain,no otalgia and no present sore throat. CARDIOVASCULAR: Denies chest pain, palpitations, or edema. RESPIRATORY: Reports cough at times productive.? Denies dyspnea. GASTROINTESTINAL: Denies abdominal pain, nausea, vomiting, diarrhea SKIN: Denies rash or itching. MUSCULOSKELETAL: Denies myalgia. NEUROLOGIC: Reports headache. All systems reviewed & are unremarkable except as noted in HPI and below PMFSH Past Medical History Medical History Cervical mass Hemorrhoid History of osteoporosis High cholesterol Hypertension Surgical History Surgical History History of bladder surgery History of 2 sections H/O breast surgery Family History Family History Father Family history of elevated blood lipids Cerebrovascular accident Mother Cerebrovascular accident, Onset Age: 199 Patient's mother is Social History Social History Smoking status: Never smoker Second hand tobacco smoke exposure: No Alcohol intake: current Alcohol use details: Socially Substance use: never Substance use type: does not use Lack of Transportation: No Lack of Food: Never True Current Housing: I Have Housing Concerned About Future Housing: No Difficulty Paying Gas/Electric Bills: No Difficulty Paying for Meds: No Currently Unemployed: No Education: Master's Degree or Higher Difficulty w/ Childcare or Family Care: No Living arrangements: other Additional living arrangements comments: With spouse Freddy Gender identity (if verbalized by the patient): Female Sexual Orientation (if Verbalized by the Patient): Straight or Heterosexual Spiritual care concerns: No Comments At time of signature, agree with nursing past medical, surgical, social and family history. There is no relevant family history pertinent to the presenting complaint Exam Narrative: GENERAL: Well-appearing, well-nourished, and in no acute distress. HEAD: Normocephalic EYES: PERRLA, conjunctivae clear ENT: Nares clear, turbinates edematous and erythematous, clear discharge sinus pressure. Mucous membranes moist. TM pearly diaz with dull light reflex bilaterally; no tragal tenderness. Oropharynx erythematous without lesions. Tonsils not enlarged and without exudate, no drooling, no hoarseness, no trismus, uvula midline.post nasal drainage noted NECK: Supple. No lymphadenopathy CHEST: Clear to auscultation, breath sounds equal. No wheezing, rhonchi, rales, or stridor. No respiratory distress, speaks in full sentences. cough some productive cough at times denies any dyspnea SAO2 99% on room air HEART: Regular rate and rhythm. No murmur heard. SKIN: Warm, dry, no rash. NEURO: Alert and oriented x3. PSYCH: Normal mood and affect Course Course Emergency Course: Patient is aware of diagnosis, understands and agrees to treatment plan.? Anticipatory guidance given.? Patient agrees to follow-up as directed and is aware of reasons to seek care at the emergency department. Portions of this record may have been created with voice recognition software Level of Care: Express Care Visit Vital Signs Vital signs: Reviewed MDM - URI/Sore Throat MDM Narrative Medical decision making narrative: Differential diagnosis considered: [place] virus, strep pharyngitis, allergic rhinitis, upper respiratory tract infection, sinusitis, rhinosinusitis, nasopharyngitis. viral pharyngitis, otitis media, otitis externa, pneumonia, bronchitis, viral cough syndrome, viral syndrome, and influenza.? Exam findings show no acute concerns or changes; patient is non-toxic appearing and is in no distress.? Patient is appropriate for outpatient treatment and follow-up. Differential Diagnosis Differential diagnosis: Likely upper respiratory infection, sinusitis, viral infection, influenza and other (cough) Medical Records Attestation: I reviewed the patient's medical records. Lab Data Attestation: I reviewed the patient's lab results. Lab results narrative: Influenza A negative, Influenza B negative Critical Care Time Critical Care Time Critical Care Time: No Discharge Plan Discharge Clinical Impression: URI with cough and congestion Patient Disposition: Home, Self-Care Condition: Stable Instructions: Antibiotic Form, Upper Respiratory Infection (ED), Acute Cough (ED) Additional Instructions: Increase fluids especially juices and water Loin-kte-yninzqu cough and cold medicine of your choice for your symptoms Zyrtec Claritin or Lila daily continue your Coricidin brand decongestant Steroids as directed--take with food heat to the face 20-30 minutes 4-6 times a day for pain Salt water gargles, throat lozenges or throat sprays as desired Antibiotic as directed--finished the medication If your symptoms persist, change or worsen significantly before you can contact your personal physician then please, without delay, go to the emergency department for further evaluation. Follow-up with PCP in 7-10 days or sooner if needed Follow up with PCP soon in regards to your blood pressure which is elevated above threshold for referral. Blood pressure above 120/80 may indicate pre-hypertension. minimal diastolic elevation at 113/87 Tylenol or ibuprofen for any fever pain Patient Language: Portuguese Prescriptions: New azithromycin 250 mg tablet See Rx Instructions .ROUTE .COMPLEX Qty: 6 0RF Rx Instructions: For 250 mg dose pack: take 500 mg today (day 1), then 250 mg for 4 days (days 2-5) methylprednisolone [Medrol (Rafita)] 4 mg tablets,dose pack See Rx Instructions .ROUTE .COMPLEX Qty: 21 0RF Rx Instructions: orally per package directions No Action simvastatin 40 mg tablet coenzyme Q10 [CoQ-10] 30 mg Capsule 30 mg PO DAILY One-A-Day Womens Formula 18 mg iron-400 mcg-500 mg Tablet 1 tablet PO DAILY pyridoxine (vitamin B6) 25 mg Tablet 25 mg PO DAILY cyanocobalamin (vitamin B-12) [Vitamin B-12] 1,000 mcg Tablet 1,000 mcg PO DAILY cholecalciferol (vitamin D3) 125 mcg (5,000 unit) capsule 125 mcg PO DAILY magnesium gluconate [Mag-G] 27 mg magnesium (500 mg) tablet 27 mg PO DAILY biotin 1 mg capsule 1 mg PO DAILY spinulinia .Route Rx Instructions: .Routeas direct minoxidil .Route Rx Instructions: .Routeas directed Follow-up/Referrals: Hitesh,SUMI Ferrari [Primary Care Provider] - Time of Disposition: 10:11 [place] Coma Scale Eyes: Open Verbal: Oriented and Alert Motor: Follows Commands [place]anco Coma Total Score: 15
[2024-07-29 09:49] VITALS: BP 113/87; PULSE 78; RESP 16; TEMP 37.4; O2SAT 99
[2024-07-29 10:12] LABS: EDINFLUASCREEN Negative (Negative); EDINFLUBSCREEN Negative (Negative)
== END 2024-07-29 10:16 | disposition home or self-care (01) ==
PROVIDERS: Emergency Provider Registered Nurse; PCP Physician Assistant
DX: J06.9 Acute upper respiratory infection, unspecified (principal); R05.9 Cough, unspecified; I10 Essential (primary) hypertension; E78.00 Pure hypercholesterolemia, unspecified; M81.0 Age-related osteoporosis without current pathological fracture
CPT/HCPCS: 87804; 99213; G0463

== ENCOUNTER 2025-01-27 06:58 | Outpatient (CLI) | payer MEDICARE, OTHER, SELFPAY ==
--- OUTSIDE RECORDS SUMMARY | 2025-01-27 07:02 | XMS_ITS | Clinical Summary ---
Author Organization [facility] Address [address] [place] [address] Care Team Providers Care Pantry Worker Name Role Phone Unavailable Primary Care Provider Unavailabl e Social History Tobacco Use Types Packs/Day Years Used Date Smoking Tobacco: Never Assessed Comments Unknown Sex and Gender Information Value Date Recorded Sex Assigned at Not on file Legal Sex Female 7:08 PM CDT Gender Identity Not on file Sexual Orientation Not on file Plan of Treatment Health Maintenance Due Date Last Done Comments Colorectal Cancer Screening Colonoscopy (10 Years) 1950 Hepatitis C 11/10/1969 DTaP, Tdap and Td Vaccines ( 1 - Tdap) 11/10/1970 Mammogram Screening 1991 Pneumococcal Vaccine: 50+ Ye ars (1 of 1 - PCV) 11/10/2001 Zoster Vaccines (1 of 2) 11/10/2001 Dexa Scan (General) 11/10/2016 COVID-19 Vaccine ( - 2023-2 5 season) 2024 RSV Immunization or 60+ Years (1 - 1-dose 75+ series) 11/10/2026 Meningococcal B Vaccine Aged Out No l onger eligible based on patient's age to complete this topic Meningococcal Vaccine Aged Out No ailyn balbina eligible based on patient's age to complete this topic RSV Immunizations Under 20 Months Aged Out No longer eligible based on patient's age to complete this topic
--- OUTSIDE RECORDS SUMMARY | 2025-01-27 07:02 | XMS_ITS | Clinical Summary ---
Author Organization [facility] [place] [address] Address [address] [place] [address] Care Team Providers Care Chief Operations Officer Name Role Phone Vonda Proctor Primary Care Pr ovider Allergies No known active allergies Medications alljozfuqveg-Fu-h fantasma-minerals tablet Take 1 tablet by mouth daily. Active cholecalciferol (VITAMIN D-3) 1,000 unit capsule Take 2 capsules (2,000 Units total) by mouth daily Active coenzyme Q10 100 mg capsule Take 1 capsule (100 mg total) by mouth daily Active [id number]-zevf-HQ-ybv usate jose raul-dha 29 mg iron-1.25 mg-55 mg capsule Take 2 tablets by mouth daily. Active vitamin E (AQUASOL E) 100 unit capsule Take 1 capsule (100 Units total) by mouth daily Active TURMERIC ORAL Take by mouth. A ctive valACYclovir (VALTREX) 1 gram tablet Active pyridoxine (VITAMIN B-6) 100 mg tablet Take 1 tablet (100 mg total) by mouth daily Active vitamin O17-tckjj acid 0.5-1 mg tablet Take by mouth Active denosumab (PROLIA) 60 mg/mL syringeIndication s:Age-related osteoporosis without current pathological fracture Inject 1 mL (60 mg total) under the skin once for 1 dose 1 mL 4 Active albuterol HFA (PROVENTIL HFA,VENTOLIN HFA,PROAIR HFA) 90 mcg/actuation inhaler TAKE 2 PUFFS BY MOUTH EVERY 4 TO 6 HOURS NEEDED FOR SHORTNESS OF BREATH Active HYDROcodone-aceta minophen (NORCO) 5-325 mg per tablet Take 1 tablet every 6-8 hours by oral route as needed. Active minoxidiL (LONITEN) 2.5 mg tablet TAKE 1/2 TABLET DAILY BY MOUTH 4 Active simvastatin (ZOCOR) 40 mg tablet Take 1 tablet (40 mg total) by mouth daily Active valsartan-hydroCH LOROthiazide (DIOVAN-HCT) 160-12.5 mg per tabletIndications :hypertension Take 0.5 tablets by mouth daily Active benzonatate (TESSALON) 200 mg capsuleIndication s:Acute lower respiratory infection Take 1 capsule (200 mg total) by mouth 3 (three) times a day as needed for cough keep tessalon out of reach of children, especially children under the age of 10, due to possible serious risk such as if ingested by children under the age of 10. 30 capsule Active Active Problems Problem Noted Date Diagnosed Date Orthostasis 01/26/2024 Compression fracture of T8 vertebra with routine healing 12/24/2021 Age-related osteoporosis wit hout current pathological fracture 12/24/2021 Assessment & Plan (04/12/2024 1:18 PM RETAIL DEPARTMENT MANAGER): Chronic, unknown status 71 yr old post menopausal H/o Severe Osteoporosis S/p Prolia treatment for 3 yrs 2017 - 2020 T 8 vertebral compression fracture - healed On Teriparatide 20 mcg SQ daily ( started 02/08/2022 - stop November 2022 ) S/p Prolia 12/31/2022 Reviewed recent bone density scan results from 03/2023 - unchanged T-score at spine, improved T-score at hip S/o Polia 02/23/2024 Fall precautions Continue current vitamin D supplementation recommened atleast 2-3 servings of calcium intake in diet Due for another Prolia injection August 24 2024 Repeat bone density scan in January 2025 patient follow in clinic after her bone density scan to discuss next step in treatment plan Assessment & Plan (03/31/2023 5:11 PM CDT): 71 yr old post menopausal H/o Severe Osteoporosis S/p Prolia treatment for 3 yrs 2017 - 2020 T 8 vertebral compression fracture - healed On Teriparatide 20 mcg SQ daily ( started 02/08/2022 - stop November 2022 ) S/p Prolia 12/31/2022 Reviewed recent bone density scan results from 03/2023 - unchanged T-score at spine, improved T-score at hip Fall precautions Continue current vitamin D supplementation recommened atleast 2-3 servings of calcium intake in diet Follow up in 12 months Assessment & Plan (09/16/2022 9:57 AM CDT): 71 yr old post menopausal H/o Severe Osteoporosis S/p Prolia treatment for 3 yrs 2017 - 2020 T 8 vertebral compression fracture - healing On Teriparatide 20 mcg SQ daily ( started 02/08/2022 ) Advise to finish home Teriparatide supply ( pt has another 38 days supply left ) Than switch to anti resorptive therapy with Prolia Due for BMD 03/2023 Fall precautions Continue current vitamin D supplementation recommened atleast 2-3 servings of calcium intake in diet Follow up in 6 months Assessment & Plan (04/01/2022 12:27 PM CDT): 71 yr old post menopausal H/o Severe Osteoporosis S/p Prolia treatment for 3 yrs 2017 - 2020 T 8 vertebral compression fracture - healing C/w Teriparatide 20 mcg SQ daily ( started ) Plan to do for next 6 months and than switch to anti resorptive therapy Fall precautions Continue current vitamin D supplementation recommened atleast 2-3 servings of calcium intake in diet Follow up in 6 months Assessment & Plan (12/24/2021 9:15 AM CDT): 71 yr old post menopausal H/o Severe Osteoporosis S/p Prolia treatment for 3 yrs 2017 - 2020 New T 8 vertebral compression fracture Advise to start pt on Teriparatide 20 mcg SQ daily Plan to do for 6 months and than switch to anti resorptive therapy Fall precautions Continue current vitamin D supplementation recommened atleast 2-3 servings of calcium intake in diet Check BMP and PTH intact levels before starting Forteo and repeat than in 2 weeks after starting therapy Follow up in 3 months Abnormal findings on diagnos tic imaging of heart and coronary circulation 05/28/2018 Essential hypertension 05/28/2018 Other hyperlipidemia 05/28/2018 LAE (left atrial enlargement) 05/28/2018 Diastolic dysfunction 05/28/2018 Abnormal mammogram 07/02/2010 Encounters Date Type Department Care Team Description 11/29/2024 11:45 AM CDT Office Visit [facility] Care at [address] [address] Chrissy Morillo NP Acute lower respiratory infection (Primary Dx); Laryngitis, acute from Last 3 Months Surgical History Surgery Date Site/Laterality Comments SECTION BREAST BIOPSY Left Medical History Medical History Date Comments Hypertension Hyperlipidemia Age-related osteoporosis without current patholo gical fracture Compression fracture of T8 vertebra with routine healing Fracture, toe 01/12/2023 Family History Medical History Relation Name Comments Hypertension Brother Sleep apnea Brother Hyperlipidemia Father Hypertension Father Skin cancer Maternal Grandmother Heart disease Mother Hyperlipidemia Mother Hypertension Mother Stroke Mother Diabetes type II Sister Hyperlipidemia Sister Relation Name Status Comments Brother Alive Father (Age 93) Maternal Grandmother Mother (Age 69) Sister Alive Social History Tobacco Use Types Packs/Day Years Used Date Smoking Tobacco: Never Smokeless Tobacco: Never Tobacco Cessation:Counseling Given: Not Answered Alcohol Use Standard Drinks/Week Comments Yes 1 (1 standard drink = 0.6 oz pur e alcohol) socially PHQ-2 Answer Date Recorded PHQ-2 Total Score (If total score is 3 or more points, staff should administer the PHQ-9) 0 04/01/2022 Comments Unknown Sex and Gender Information Value Date Recorded Sex Assigned at Not on file Legal Sex Female 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 Gender Identity Not on file Sexual Orientation Not on file Obstetrics History Last Filed Vital Signs Vital Sign Reading Time Taken Comments Blood Pressure 115/75 11/29/2024 11:47 AM CDT Pulse 72 11/29/2024 11:47 AM CDT Temperature 36.8 C (98.3 F) 11/29/2024 11:47 AM CDT Respiratory Rate 18 11/29/2024 11:4 7 AM CDT Oxygen Saturation 99% 11/29/2024 11: 47 AM CDT Inhaled Oxygen Concentration - - Weight 63.5 kg (139 lb 14.4 oz) 025 11:47 AM CDT Height 157.5 cm (5' 2.01) 11/29/2024 1 1:47 AM CDT Body Mass Index 25.58 11/29/2024 11:47 AM CDT Plan of Treatment Health Maintenance Due Date Last Done Comments Breast Cancer Screening-Mammogram 1950 Colon Cancer Screening-Colonoscopy 1950 Fall Risk Assessment 1950 Hepatitis C Screening 1950 Osteoporosis Screening-Bone Density Scan 1950 DTaP/Tdap/Td Vaccine (1 - Tdap) 11/10/1962 Hepatitis B Screening 11/10/1969 Well Visit 65+ 11/10/2016 Zoster Vaccine (2 of 2) 12/28/2021 11/02/2021 Depression Screening 04/01/2023 04/01/2022, 12/25/19 Covid-19 Vaccine (5 - 2023-2 5 season) 2024 08/29/2021, 03/23/2021, 08/22/2020, Additional history exists Influenza Vaccine (#1) 2025 , 03/16/2021, 03/15/2020, Additional history exists Pneumococcal vaccine 65+ Completed 04/19/2022, 04/02 Procedures Procedure Name Priority Date/Time Associated Diagnosis Comments POCT RAPID STREP Routine 11/29/2024 12:0 6 PM CDT Acute lower respiratory infection from Last 3 Months Results * POCT rapid strep A (11/29/2024 12:06 PM CDT) Rapid Strep A, POC Negative Negative Swab 11/29/2024 12:0 6 PM CDT Chrissy Morillo NP POINT OF CARE TEST ORDERABLES F inal Result from Last 3 Months Insurance [employer] [facility] [employer] MEDICARE [facility] MEDICARE FUNDS [employer] Care Teams Chief Operations Officer Relationship Specialty Start Date End Date Vonda Proctor PA PCP - General Physician Director Of Physiotherapy Services 05/27/18
--- OUTSIDE RECORDS SUMMARY | 2025-01-27 07:02 | XMS_ITS | Encounter Summary ---
Author Organization [facility] Healthcare Address [address] [place] [address] Care Team Providers Care Construction Site Crossing Guard Name Role Phone Vonda Proctor Primary Care Pr ovider Encounter Details Date Type Department Care Team (Late st Contact Info) Description 08/10/2021 Telephone [facility] Advanced Medicine Radiation Oncology [address] [facility] [place] [address] Jumana Wilkins RN Social History Tobacco Use Types Packs/Day Years Used Date Smoking Tobacco: Never Smokeless Tobacco: Never Alcohol Use Standard Drinks/Week Comments Yes 1 (1 standard drink = 0.6 oz pur e alcohol) socially Comments Unknown Sex and Gender Information Value Date Recorded Sex Assigned at Not on file Legal Sex Female 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
--- OUTSIDE RECORDS SUMMARY | 2025-01-27 07:02 | XMS_ITS | Encounter Summary ---
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 us Historical Provider Final Res ult documented in this encounter Visit Diagnoses Not on filedocumented in this encounter Care Teams Recruiter Account Manager Relationship Specialty Start Date End Date Vonda Proctor PA PCP - General Physician Job Checker 05/27/18 documented as of this encounter
[2025-01-27 07:45] LABS: Hematocrit 40.8 % (37.0-47.0); Hemoglobin 13.5 g/dL (12.0-15.0); Immature Granulocyte Percent A 0.2 % (0-0.5); Lymphocytes Absolute Auto 2.50 K/mm3 (0.9-3.2); Mean Corpuscular HGB Conc 33.1 g/dl (32-36); Mean Corpuscular Hemoglobin 29.0 pg (26-34); Mean Corpuscular Volume 87.6 fl (80-100); Nucleated Red Blood Cells Absolute Auto 0.000 K/mm3 (0.0-0.012); Nucleated Red Blood Cells Perc 0.0 % (0.0-0.2); Platelet Count Result 232 k/mm3 (150-375); Red Blood Count 4.66 M/mm3 (4.2-5.4); White Blood Count 5.7 K/mm3 (4.5-10.0)
[2025-01-27 08:04] LABS: Alanine Aminotransferase 21 U/L (6-35); Albumin Level 4.3 g/dL (3.5-5.1); Alkaline Phosphatase 77 U/L (38-126); Anion Gap 7 mmol/L (4-12); Aspartate Amino Transferase 26 U/L (14-36); Bilirubin,Total 0.6 mg/dL (0.2-1.3); Blood Urea Nitrogen 19 mg/dL (7-17); Calcium 8.9 mg/dL (8.4-10.2); Carbon Dioxide 24 mmol/L (22-30); Chloride 106 mmol/L (98-107); Cholesterol 235 mg/dL (0-200); Estimated Glomerular Filt Rate > 60; Glucose 102 mg/dL (65-110); HDL Direct 83 mg/dL; Potassium 4.0 mmol/L (3.4-5.0); Sodium 137 mmol/L (137-145); Total Protein 7.6 g/dL (6.3-8.2); Triglycerides 135 mg/dL (<150)
[2025-01-27 08:29] LABS: Hemoglobin A1C 5.6 % (<5.7)
== END 2025-01-27 06:59 | disposition home or self-care (01) ==
LOC: ANHLAB 07:01
PROVIDERS: PCP Physician Assistant; Visit Provider Physician Assistant
DX: E78.5 Hyperlipidemia, unspecified (principal); I10 Essential (primary) hypertension; R73.01 Impaired fasting glucose; Z79.899 Other long term (current) drug therapy
CPT/HCPCS: 36415; 80048; 80061; 80076; 83036; 85025

== ENCOUNTER 2025-02-02 07:49 | Outpatient (CLI) | payer MEDICARE, OTHER, SELFPAY ==
--- NOTE | ~2025-02-02 | MM_ITS ---
EXAMINATION: MM screening [facility] BI w arnol HISTORY: Screening TECHNIQUE: Craniocaudal and mediolateral oblique 3-D tomosynthesis images were obtained and synthetic 2-D images were generated. CAD analysis was submitted and interpreted. COMPARISON: Mammograms from 12/24/2023 and 09/09/2022 BREAST PARENCHYMAL COMPOSITION: There are scattered areas of fibroglandular density. FINDINGS: There is no evidence of suspicious mass, calcification, or architectural distortion to suggest malignancy. There has been no suspicious interval change. IMPRESSION: 1. No mammographic evidence of malignancy. Recommend routine screening mammography in one year. BI-RADS Category 2: Benign finding(s) Reviewed, dictated and finalized at location Q. IMPRESSION: 1. No mammographic evidence of malignancy. Recommend routine screening mammogra phy in one year. BI-RADS Category 2: Benign finding(s)
--- OUTSIDE RECORDS SUMMARY | 2025-02-02 07:53 | XMS_ITS | Encounter Summary ---
Author Organization [facility] Healthcare Address [address] [place] [address] Care Team Providers Care Morgue Keeper Name Role Phone Vonda Proctor Primary Care Pr ovider Encounter Details Date Type Department Care Team (Late st Contact Info) Description 08/10/2021 Telephone [facility] Advanced Medicine Radiation Oncology [address] [facility] [place] [address] Jumana Wilkins RN Social History Tobacco Use Types Packs/Day Years Used Date Smoking Tobacco: Never Smokeless Tobacco: Never Alcohol Use Standard Drinks/Week Comments Yes 1 (1 standard drink = 0.6 oz pur e alcohol) socially Comments Unknown Sex and Gender Information Value Date Recorded Sex Assigned at Not on file Legal Sex Female 2:48 AM WIDE ARE[employer] NETWORK SYSTEMS ADMINISTRATOR Gender Identity Not on file Sexual Orientation Not on file documented as of this encounter Plan of Treatment Not on file documented as of this encounter Visit Diagnoses Not on filedocumented in this encounter Care Teams Morgue Keeper Relationship Specialty Start Date End Date Vonda Proctor PA PCP - General Physician Project Engineering Manager 05/27/18 documented as of this encounter
--- OUTSIDE RECORDS SUMMARY | 2025-02-02 07:53 | XMS_ITS | Encounter Summary ---
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
--- OUTSIDE RECORDS SUMMARY | 2025-02-02 07:53 | XMS_ITS | Clinical Summary ---
Author Organization [facility] Address [address] [place] [id number] Care Team Providers Care Director Database Name Role Phone Unavailable Primary Care Provider [...] COVID-19 Vaccine ( - 2023-2 5 season) 2025 RSV Immunization or 60+ Years (1 - [...]
--- OUTSIDE RECORDS SUMMARY | 2025-02-02 07:54 | XMS_ITS | Clinical Summary ---
Author Organization [facility] [address] Address [address] [place] [address] Care Team Providers Care Station Gateman Name Role Phone Vonda Proctor Primary Care Pr ovider Allergies No known active allergies Medications fywshhtydipz-Jq-t fantasma-minerals tablet Take 1 tablet by mouth daily. Active cholecalciferol (VITAMIN D-3) 1,000 unit capsule Take 2 capsules (2,000 Units total) by mouth daily Active coenzyme Q10 100 mg capsule Take 1 capsule (100 mg total) by mouth daily Active WXL74-oivn-UW-lpv usate jose raul-dha 29 mg iron-1.25 mg-55 mg capsule Take 2 tablets by mouth daily. Active vitamin E (AQUASOL E) 100 unit capsule Take 1 capsule (100 Units total) by mouth daily Active TURMERIC ORAL Take by mouth. 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
== END 2025-02-02 07:50 | disposition home or self-care (01) ==
LOC: ANHFOHIMG 07:51
PROVIDERS: PCP Physician Assistant; Visit Provider Obstetrics & Gynecology
DX: Z12.31 Encounter for screening mammogram for malignant neoplasm of breast (principal)
CPT/HCPCS: 77063; 77067

== ENCOUNTER 2025-02-07 11:58 | Outpatient (CLI) | payer MEDICARE, SELFPAY ==
--- NOTE | ~2025-02-07 | XR_ITS ---
EXAM/ PROCEDURE: XR shoulder LT min 2V - 02/07/2025 12:23 CDT HISTORY: 74 years old Female with pain in left shoulder x 3 months, no inj, hx of osteoporosis COMPARISON: None available TECHNIQUE: Four view(s) FINDINGS/ IMPRESSION: There are no fractures or dislocations.Joint space narrowing, subchondral sclerosis, subchondral cyst formation and osteophyte formation, compatible with mild osteoarthritis. Reviewed, dictated and finalized at location N.
== END 2025-02-07 11:59 | disposition home or self-care (01) ==
PROVIDERS: PCP Physician Assistant; Visit Provider Physician Assistant
DX: M25.512 Pain in left shoulder (principal)
CPT/HCPCS: 73030

== ENCOUNTER 2025-03-18 07:24 | Outpatient (CLI) | payer MEDICARE, SELFPAY ==
--- NOTE | ~2025-03-18 | DEXA_ITS ---
Bone Density Report Name: BRITTNEY CARLSON Age: 74 Sex: Female Ethnicity: White Date of : 1950 Indication: osteopenia; monitoring treatment; prior fracture; Referring Provider: LIZBET, SHALONDA Pressley Study: Bone densitometry was performed. Exam Date: March 18, 2025 Accession number: [id number] Bone Density: Region BMD T-score Z-score Classification AP Spine(L1-L4) 0.790 -2.3 0.0 Osteopenia Femoral Neck (Left) 0.695 -1.4 0.6 Osteopenia Total Hip (Left) 0.837 -0.9 0.8 Normal Femoral Neck (Right) 0.757 -0.8 1.2 Normal Total Hip (Right) 0.837 -0.9 0.8 Normal Total Hip Mean 0.837 -0.9 0.8 Normal World Health Organization criteria for BMD impression classify patients as: Normal (T-score at or above -1.0), Osteopenia (T-score between -1.0 and -2.5), or Osteoporosis (T-score at or below -2.5). 10-year Fracture Risk: FRAX not reported because: Prior hip or vertebral fracture Treated for osteoporosis Previous Exams: Region Exam Age BMD T-score BMD Change BMD Change Date g/cm2 vs Baseline vs Previous AP Spine (L1-L4) 03/18/2025 74 0.790 -2.3 0.023 (3.1%)# 0.006 (0.8%) 03/07/2023 72 0.784 -2.4 0.018 (2.3%)# -0.028 (-3.4%) 03/05/2021 70 0.812 -2.1 0.045 (5.9%)# 0.046 (6.1%)* 10/20/2018 67 0.765 -2.6 -0.001 (-0.2%) 0.022 (3.0%) 09/27/2016 65 0.743 -2.8 -0.023 (-3.1%) -0.017 (-2.2%) 07/26/2014 63 0.760 -2.6 -0.007 (-0.9%) -0.007 (-0.9%) 03/17/2012 61 0.767 -2.5 Total Hip(Left) 03/18/2025 74 0.837 -0.9 0.077 (10.1%)# 0.025 (3.1%) 03/07/2023 72 0.812 -1.1 0.051 (6.8%)# 0.043 (5.6%)* 03/05/2021 70 0.768 -1.4 0.008 (1.1%)# 0.008 (1.0%) 10/20/2018 67 0.761 -1.5 0.001 (0.1%)# -0.004 (-0.5%) 09/27/2016 65 0.765 -1.5 0.005 (0.6%)# -0.010 (-1.2%) 07/26/2014 63 0.774 -1.4 0.014 (1.9%)# 0.014 (1.9%)# 03/17/2012 61 0.760 -1.5 Total Hip(Right) 03/18/2025 74 0.837 -0.9 0.091 (12.2%)# 0.037 (4.7%)# 03/07/2023 72 0.799 -1.2 0.053 (7.2%)# 0.051 (6.9%)* 03/05/2021 70 0.748 -1.6 0.002 (0.3%)# -0.013 (-1.7%) 10/20/2018 67 0.761 -1.5 0.015 (2.0%)# 0.048 (6.7%)* 09/27/2016 65 0.713 -1.9 -0.033 (-4.4%) 0.009 (1.3%) 07/26/2014 63 0.704 -2.0 -0.042 (-5.6%) -0.042 (-5.6%) 03/17/2012 61 0.746 -1.6 *Denotes significance at 95% confidence level, LSC for AP Spine = 0.022 g/cm2, LSC for Total Hip = 0.027 g/cm2 # Denotes dissimilar scan types or analysis methods Clinical Information Provided by Patient: Have had a previous hip or vertebral fracture Has had a low trauma fracture Is being treated for osteoporosis Has used the following medications: Boniva (i.e. ibandronate), Forteo (i.e. parathyroid hormone), Prolia (i.e. denosumab) Patient maximum height was 62 Menopause Age: 53 No regular weight bearing exercise Onset of menses at age 13 Number of children 2 Impression: The patient has low bone mass, based on the Total Spine T-score. The patient has risk factors, including: previous fracture. No significant bone loss was observed. Discussion: PATIENT UNDER TREATMENT WITH NO SIGNIFICANT BMD LOSS SINCE LAST EXAM. In an untreated patient, BMD typically declines with age. A lack of decline or gain is usually a sign that treatment is efficacious and fracture risk is reduced. It is important to ask patients whether they are taking their medications and to encourage continued and appropriate compliance with their osteoporosis therapies to reduce fracture risk. It is also important to review their risk factors and encourage appropriate calcium and vitamin D intakes, exercise, fall prevention and other lifestyle measures. Follow-Up: Consider a repeat BMD and Vertebral Fracture Assessment (VFA) exam in 2 years or sooner if medically necessary, to reassess this patient's status. Reported by: CHRISTIE on 03/18/2025 8:13:00 AM. Reviewed, dictated and finalized at location A.
--- OUTSIDE RECORDS SUMMARY | 2025-03-18 07:29 | XMS_ITS | Encounter Summary ---
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
--- OUTSIDE RECORDS SUMMARY | 2025-03-18 07:29 | XMS_ITS | Clinical Summary ---
Author Organization [facility] [address] Address [address] [place] [address] Care Team Providers Care Gold And Silver Assayer Name Role Phone Vonda Proctor Primary Care Pr ovider Allergies No known active allergies Medications pgaqhdnzooqd-Xu-t fantasma-minerals tablet Take 1 tablet by mouth daily. Active cholecalciferol (VITAMIN D-3) 1,000 unit capsule Take 2 capsules (2,000 Units total) by mouth daily Active coenzyme Q10 100 mg capsule Take 1 capsule (100 mg total) by mouth daily Active CJG09-gowj-PZ-oto usate jose raul-dha 29 mg iron-1.25 mg-55 mg capsule Take 2 tablets by mouth daily. Active vitamin E (AQUASOL E) 100 unit capsule Take 1 capsule (100 Units total) by mouth daily Active TURMERIC ORAL Take by mouth. 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 Gender Identity Not on file Sexual [...] 04/01/2023 04/01/2022, 12/25/19 Covid-19 Vaccine (5 - 2024-2 6 season) 2025 08/29/2021, 03/23/2021, 08/22/2020, Additional history exists Influenza Vaccine (#1) 2025 , 03/16/2021, 03/15/2020, Additional history exists Pneumococcal vaccine 65+ Completed 04/19/2022, 04/02 Insurance [employer] MEDICARE [place] MEDICARE FUNDS [employer] Care Teams Gold And Silver Assayer Relationship Specialty Start Date End Date Vonda Proctor PA PCP - General Physician Motor Vehicle Operator Road Supervisor 05/27/18
--- OUTSIDE RECORDS SUMMARY | 2025-03-18 07:29 | XMS_ITS | Clinical Summary ---
Author Organization [facility] Address [address] [place] [id number] Care Team Providers Care Patient Registrar Name Role Phone Unavailable Primary Care Provider [...] 11/10/2001 Dexa Scan (General) 11/10/2016 COVID-19 Vaccine (2023-2 5 season) 2025 Influenza Adult (#1) 2025 RSV Immunization or 60+ Years (1 [...]
--- OUTSIDE RECORDS SUMMARY | 2025-03-18 07:29 | XMS_ITS | Data Portability ---
Author Organization Christoph WAN Address [address] [place] [address] Care Team Providers Care Collector Of Internal Revenue Name Role Phone PONCHO LESLIE Primary Care Provider Unavailab le Assessment Encounter Date Assessment Date Assessment LastModified by Organization Details LastModified Time 02/07/2025 02/07/2025 diabetes screening is still negative at 5.6 and her fasting sugar was 102 which is a couple of points elevated. But overall her LDL cholesterol has improved down to 99 her HDL good cholesterol remains terrific at 83 Not available 02/26/2025 17:19:28 Plan of Treatment Reminders Order Date Submit Date Provider Last Modified By Organization Details Last Modified Time Details Appointments ANY 15 2025 09:00A M LANDRY [place] Not available Not available Not available Lab HbA1c (hemoglob in A1c), blood 2024 026 [facility], [address], [place], [address], 02/07/2025 11:45:48 hepatic function panel, serum 2024 026 [facility], [address], [place], [address], 02/07/2025 11:45:48 CBC w/ auto diff 2024 026 [facility], [address], [place], [address], 02/07/2025 11:45:48 BMP, serum or plasma 2024 026 [facility], [address], [address], [place], [address], 02/07/2025 11:45:48 vitamin B12 + folate, serum or blood 2024 026 [facility], [address], [place], [address], 02/07/2025 11:45:47 TSH + free T4, serum 2024 026 [facility], [address], [place], [address], 02/07/2025 11:45:47 lipid panel, serum 2024 026 [facility], [address], [place], [address], 02/07/2025 11:45:48 hepatic function panel, serum 2024 025 [email or web address] [facility], [address], [place], [address], 08/31/2024 15:46:23 CBC w/ auto diff 2024 [facility]25 [email or web address], [address], [place], [address], 08/31/2024 15:46:23 BMP, serum or plasma 2024 025 [email or web address] [facility], [place], [address], 08/31/2024 15:46:23 vitamin B12 + folate, serum or blood 2024 025 [email or web address] [facility], [place], [address], 08/31/2024 15:46:23 TSH + free T4, serum 2024 025 [facility], [address], [place], [address], 08/17/2024 10:57:56 lipid panel, serum 2024 025 [email or web address] [facility], [address], [place], [address], 08/31/2024 15:46:23 Referral None recorded. Procedures None recorded. Surgeries None recorded. Imaging XR, shoulder, 2 or more view 2024 [facility], [address] [facility] , [address], [place], [address], 02/16/2025 11:31:50 US, neck, soft tissue [address] (Imaging), [address] [place] [address], [place], [address], 12/24/2023 09:02:55 Medication Orders simvastat in 40 mg tablet 2024 025 [facility], [facility], [place], [address], 08/09/2024 11:04:16 minoxidil 2.5 mg tablet 2023 025 [facility][id number], [address] [place], [address], 08/09/2024 10:55:41 prednison e 50 mg tablet 2023 024 [facility]3259, [address] [place], [address], 03/19/2024 14:15:41 hydrocodo ne 5 mg-acetam inophen 325 mg tablet 2023 024 [facility] #3259, [address] [place], [address], 03/19/2024 14:15:53 amoxicill in 875 mg tablet 2023 024 [facility] #3259, [address] [place], [address], 12/17/2023 14:34:19 Patient TargetsNo targets recorded. Patient Instructions Encounter Date Encounter Id Patient Instructions Last Modified By Organization Details Last Modified Time 03/19/2024 [id number] A healthy lifestyle: care instructions [email or web address] Not available 03/19/2024 14:55:55 08/09/2024 [id number] A healthy lifestyle: care instructions Not available 08/09/2024 11:04:15 02/07/2025 [id number] A healthy lifestyle: care instructions Not available 02/26/2025 17:20:21 shoulder arthritis: exercises Not available 02/07/2025 11:51:52 shoulder stretches: exercises Not available 02/07/2025 11:51:53 Reason for Referral None Reported. Results Created Date Observation Date Name Description Value Unit Range Abnormal Flag Note LastModifiedBy Organization Detail LastModifiedTime 11/13/19 24 11/12/2023 XR, foot No observ ation record ed. [address] [facility], [place], [address], 11/13/2023 22:58:11 12/29/19 24 12/27/2023 MAMMO , scree maya, digit al, bilat eral No observ ation record ed. [email or web address] [address], [place], [address], 03/19/2024 14:40:00 06/01/20 24 12/23/2022 colon oscop y proce dure (PROC ) No observ ation record ed. BARCODE Not Available 2023 15:42:55 02/03/2002/02/2025 MAMMO , scree maya, digit al, bilat eral No observ ation record ed. [facility] [address], [place], [address], 02/03/2025 17:10:48 02/17/2002/07/2025 XR, shoul yana, 2 or more view No observ ation record ed. [facility] [address] [facility] [address], [place], [address], 02/17/2025 12:28:00 Result Notes None recorded. Problems Name Problem SNOMED Code Status Onset Date Resolution Date Notes Provider Name and Address Organization Details Recorded Time Body mass index 25-29 - overweight 805800807 Active 2023 Clementine Foy [place] null, [place] [facility] 4 14:16:40 Long-term drug therapy Active 2023 LANDRY Medellin Attn: Accountin g,[address] [place], [address], [place] [facility] 4 14:41:27 Hyperlipide vineet 71888247 Active 2023 LANDRY Medellin Attn: Accountin g,[address] [place], [address], [place] [facility] 5 17:16:38 Overweight 112570722 Active 2023 LANDRY Medellin Attn: Accountin g,[address] [place], [address], [place] [facility] 4 14:41:30 Loss of hair 373107791 Active 2023 LANDRY Medellin Attn: Accountin g,[address] [facility], [place], [address], [place] [facility] 4 14:45:12 Benign essential hypertensio n 5238756 Active 2023 LANDRY Medellin Attn: Gabi lombardo,[address] [facility], [place], [address], [place] [facility] 5 17:16:37 Positive screening for depression on PHQ-9 (Patient Health Questionnai re 9) 8096547720526 00 Active 2024 LANDRY Medellin Attn: Gabi lombardo,[address] [facility], [place], [address], [place] [facility] 5 11:06:07 Impaired fasting glycemia 983701406 Active 2024 LANDRY Medellin Attn: Gabi lombardo,[address] [facility], [place], [address], [facility] - [facility] 5 17:16:40 Overweight in adulthood with body mass index of 25 or more but less than 30 599937730 Active 2024 LANDRY Medellin Attn: Gabi lombardo,[address] [facility], [place], [address], [facility] - [facility] 5 17:16:44 Problem Notes None recorded. Medical Equipment None Reported. Allergies No known drug allergies Medications Name Sig Start Date Stop Date Status Note LastModified by Organization Details LastModified Time azithromyci n 250 mg tablet TAKE 2 TABLETS BY MOUTH TODAY, THEN TAKE 1 TABLET DAILY FOR 4 DAYS DIRECTED 02/07 completed Not Available Not Available Not Available benzonatate 200 mg capsule TAKE 1 CAPSULE BY MOUTH THREE TIMES A DAY NEEDED FOR COUGH 02/07 completed Not Available Not Available Not Available valacyclovi r 1 gram tablet TAKE 2 EVERY 12 HOURS 11/03 completed Not Available Not Available Not Available hydrocodone 5 mg-acetamin ophen 325 mg tablet TAKE 1 TABLET BY MOUTH EVERY 8 HOURS NEEDED 03/19 completed Not Available Not Available Not Available valsartan 160 mg-hydrochl orothiazide 12.5 mg tablet TAKE 1 TABLET DAILY active Not Available Not Available No t Available minoxidil 2.5 mg tablet Take 0.5 tablets every day by oral route. 08/09 completed Not Available Not Available Not Available simvastatin 40 mg tablet TAKE 1 TABLET DAILY active Not Available Not Available No t Available amoxicillin 875 mg tablet TAKE 1 TABLET BY MOUTH EVERY 12 HOURS 12/16 completed Not Available Not Available Not Available methocarbam ol 750 mg tablet TAKE 1 TABLET BY MOUTH THREE TIMES A DAY NEEDED FOR MUSCLE PAIN FOR 3 DAYS 11/03 completed Not Available Not Available Not Available prednisone 50 mg tablet Take 1 tablet every day by oral route for 5 days. 03/19 completed Not Available Not Available Not Available codeine 10 mg-guaifene sin 100 mg/5 mL oral liquid TAKE 10 ML BY MOUTH EVERY 6 TO 8 HOURS NEEDED 11/03 completed Not Available Not Available Not Available methylpredn isolone 4 mg tablets in a dose pack TAKE 6 TABLETS ON DAY 1 DIRECTED ON PACKAGE AND DECREASE BY 1 TAB EACH DAY FOR A TOTAL OF 6 DAYS 08/09 completed Not Available Not Available Not Available magnesium active Not Available Not Evangelina ilable Not Available Vitamin C active otc Not Available Not Evangelina ilable Not Available Fish Oil active Not Available Not Avai lable Not Available CoQ10 active Not Available Not Availa ble Not Available Vitamin B6 active Not Available Not Av ailable Not Available vitamin B comp and C no.3 active otc Not Available Not Available Not Available sodium,pota ssium,mag sulfates 17.5 gram-3.13 gram-1.6 gram oral soln TAKE DIRECTED. 11/03 completed Not Available Not Available Not Available Vitals Date Recorded Respiratory rate Systolic And Diastolic Provider Name and Address Organization Details Last Updated DateTime 08/09/2024 16 /min 110/80 mm[Hg] LANDRY Medellin Attn: Accounting,[address] [place], [address], [facility] 08/09/2024 11:02:45 Date Recorded Body height Body mass index (BMI) Body weight Oxygen saturation Oxygen saturation in Arterial blood by Pulse oximetry Heart rate Systolic And Diastolic Provider Name and Address Organization Details Last Updated DateTime 157.48 cm 25.6 kg/m2 59071.5 7 g 96 % 96 % 87 /min 128/78 mm[Hg] Clementine Foy MA [facility] 10:42:26 Date Recorded Body height Body mass index (BMI) Body weight Respiratory rate Oxygen saturation Oxygen saturation in Arterial blood by Pulse oximetry Heart rate Systolic And Diastolic Provider Name and Address Organization Details Last Updated DateTime 4 157.48 cm 24.7 kg/m2 15722.6 9 g 20 /min 97 % 97 % 68 /min 138/82 mm[Hg] Clementine Foy MA [facility] 4 15:46:53 Date Recorded Body height Respiratory rate Body mass index (BMI) Body weight Oxygen saturation Oxygen saturation in Arterial blood by Pulse oximetry Heart rate Systolic And Diastolic Provider Name and Address Organization Details Last Updated DateTime 4 157.48 cm 20 /min 25.1 kg/m2 14420.3 g 96 % 96 % 63 /min 128/82 mm[Hg] Clementine Foy MA [facility] 4 14:37:16 Date Recorded Respiratory rate Systolic And Diastolic Provider Name and Address Organization Details Last Updated DateTime 02/07/2025 16 /min 130/80 mm[Hg] LANDRY Medellin Attn: Accounting, [place], [address], [facility] 02/07/2025 11:52:24 Date Recorded Body height Body mass index (BMI) Body weight Heart rate Oxygen saturation Oxygen saturation in Arterial blood by Pulse oximetry Systolic And Diastolic Provider Name and Address Organization Details Last Updated DateTime 5 157.48 cm 25.8 kg/m2 83571.5 2 g 74 /min 96 % 96 % 118/70 mm[Hg] Mihai Huang MA [facility] 5 11:10:35 Date Recorded Systolic And Diastolic Provider Name and Address Organization Details Last Updated DateTime 03/19/2024 140/80 mm[Hg] LANDRY Medellin Attn: Accounting,[address] [place], [address], [facility] 03/19/2024 14:58:51 Date Recorded Body height Body mass index (BMI) Body weight Respiratory rate Oxygen saturation Oxygen saturation in Arterial blood by Pulse oximetry Heart rate Systolic And Diastolic Provider Name and Address Organization Details Last Updated DateTime 4 157.48 cm 25.1 kg/m2 48424.1 5 g 20 /min 97 % 97 % 81 /min 140/82 mm[Hg] Clementine Foy MA [facility] 14:27:15 Social History Question Answer Notes LastModified by Organizat ion Details LastModified Time Tobacco Smoking Status Never Smoker Clementine Foy MA null, [facility] 11/04/2023 15:44:44 Do You Have An Advance Directive? Yes Information not available 12/17/2023 Are You Blind Or Do You Have Difficulty Seeing? No Glasses Information not available 11/04/2023 What Is Your Level Of Caffeine Consumption? Moderate Coffee Information not available 11/04/2023 In The 14 Days Before Symptom Onset, Have You Had Close Contact With A Laboratory-confir med COVID-19 While That Case Was Ill? No Information not available 11/04/2023 In The 14 Days Before Symptom Onset, Have You Had Close Contact With A Person Who Is Under Investigation For COVID-19 While That Person Was Ill? No Information not available 11/04/2023 Have You Been To An Area Known To Be High Risk For COVID-19? No Information not available 11/04/2023 Are You Deaf Or Do You Have Serious Difficulty Hearing? No Information not available 11/04/2023 What Type Of Diet Are You Following? REGULAR Try To Healthy Information not available 11/04/2023 Are There Any Guns Present In Your Home? No Information not available 11/04/2023 What Was The Date Of Your Most Recent Tobacco Screening? 02/07/2025 Information not available 02/07/2025 What Is Your Relationship Status? Information not available 12/17/2023 Do You Use Your Seat Belt Or Car Seat Routinely? Yes Information not available 11/04/2023 Do You Have Smoke And Carbon Monoxide Detectors In Your Home? Yes Information not available 11/04/2023 Do You Use Sunscreen Routinely? Yes Information not available 11/04/2023 Has Tobacco Cessation Counseling Been Provided? Yes Information not available 11/04/2023 On What Date Was Tobacco Cessation Counseling Provided? 08/09/2024 Information not available 08/09/2024 Sex: Female Functional Status Question Answer Note LastModified by Organizat ion Details LastModified Time Do you use any illicit or recreational drugs? No Information not available 11/04/2023 Do you or have you ever used any other forms of tobacco or nicotine? No Information not available 11/04/2023 What is your level of alcohol consumption? Occasional Information not available 11/04/2023 Are you currently employed? No retired Information not available 02/07/2025 Are you able to care for yourself independently? Yes Information not available 11/04/2023 What is your exercise level? Moderate walk 3-4x a week Information not available 11/04/2023 Mental Status Question Answer Note LastModified by Organization D etails LastModified Time Do you feel stressed (tense, restless, nervous, or anxious, or unable to sleep at night)? [id number] Information not available 12/17/2023 Family History Relationship Description Onset Age of this Age Resolved Age Notes LastModified by Organization Details LastModified Time Mother Coronary arterioscler osis tcarterma Not available 2023 15:50:45 Mother Heart disease tcarterma Not available 2023 15:51:00 Mother Hypercholest erolemia tcarterma Not available 2023 15:51:10 Mother Hypertensive disorder tcarterma Not available 2023 15:51:19 Father Hypercholest erolemia tcarterma Not available 2023 15:51:10 Father Hypertensive disorder tcarterma Not available 2023 15:51:19 Medical History Condition Response Coronary Artery Disease N Other N Atrial Fibrillation N High Blood Pressure Y Thyroid Problems N Kidney or Bladder Problems N Depression N COPD N Blood Clots N GI Problems N Skin Problems N Anemia N Heart Attack ([place]) N Diabetes N Anxiety Disorder N Muscle, Joint, or Bone Problems N Seizures/Epilepsy N Acid Reflux (GERD) N Cancer N Stroke N Allergies N Asthma N High Cholesterol Y Hepatitis N Liver Disease N Headaches N Osteoporosis N Heart Failure N Gynecological History Statement/Question Response Menses Monthly N Current Control Method Menopause Obstetrics History GPAL:G 3 P 2 0 0 2 Type Value Full Term 2 Induced 0 Spontaneous 0 Premature 0 Living 2 Total 3 Immunizations Vaccine Type Date Status Note Provider Nam e and Address Organization Details Recorded Time zoster recombinant 2 completed Clementine F[place], [place] [facility] 03/19/2024 14:07:11 zoster recombinant 2 completed Clementine F[place] [facility] 03/19/2024 14:07:11 Influenza, high-dose, quadrivalent, PF 0 completed Clementine [place] [facility] 03/19/2024 14:07:11 Influenza, adjuvanted, quadrivalent, PF 2 completed Clementine [place] [facility] 03/19/2024 14:07:11 Influenza, adjuvanted, quadrivalent, PF 1 completed Clementine [place] [facility] 03/19/2024 14:07:11 Influenza, adjuvanted, quadrivalent, PF 3 completed Clementine [place] [facility] 03/19/2024 14:07:11 COVID-19, mRNA, LNP-S, PF, 100 mcg/0.5mL dose or 50 mcg/0.25mL dose 1 completed Clementine [place] [facility] 03/19/2024 14:07:11 COVID-19, mRNA, LNP-S, PF, 100 mcg/0.5mL dose or 50 mcg/0.25mL dose 1 completed Clementine [place] [facility] 03/19/2024 14:07:11 COVID-19, mRNA, LNP-S, PF, 100 mcg/0.5mL dose or 50 mcg/0.25mL dose 1 completed Clementine [place] [facility] 03/19/2024 14:07:11 COVID-19, mRNA, LNP-S, PF, 30 mcg/0.3 mL dose, riki-sucrose 2 completed JACI [place] [facility] 03/19/2024 14:07:11 COVID-19, mRNA, LNP-S, bivalent, PF, 30 mcg/0.3 mL dose 2 completed [place] [facility] 03/19/2024 14:07:11 RSV, recombinant, protein subunit RSVpreF, adjuvant reconstituted, 0.5 mL, PF 4 completed [place] [facility] 03/19/2024 14:07:11 COVID-19, mRNA, LNP-S, PF, riki-sucrose, 30 mcg/0.3 mL 4 completed [place] [facility] 03/19/2024 14:07:11 Influenza, split virus, trivalent, preservative 4 completed Clementine [place] [facility] 03/19/2024 14:07:11 Influenza, split virus, trivalent, preservative 3 completed [place] [facility] 03/19/2024 14:07:11 influenza, unspecified formulation 4 completed [place] [facility] 05/03/2024 14:38:00 pneumococcal polysaccharide PPV23 2 completed Shayy Liao LPN [place], [place] [facility] 09/13/2024 11:29:35 COVID-19, mRNA, LNP-S, PF, riki-sucrose, 30 mcg/0.3 mL 5 completed Not Available [facility] 02/07/2025 11:03:47 Pneumococcal conjugate PCV21, polysaccharide GFQ251 conjugate, PF 5 completed Not Available [facility] 02/07/2025 11:03:47 Influenza, adjuvanted, trivalent, PF 5 completed JACI [place] [facility] 03/17/2025 16:21:47 Past Encounters Encounter ID Performer Location Encounter Start Date Encounter Closed Date Diagnosis/Indication Diagnosis SNOMED-CT Code Diagnosis ICD10 Code Diagnosis IMO Codes Diagnosis Note [id number] Dylan Tolliver MD [facility] [employer] [address] [place] [address] 11/04/2023 15:19:35 12/01/2023 15:06:13 Pain in throat 279985498 R07.0 start amoxil 875mg bid x 7 days. Tenderness of lymph node 989485659 R59.1 check u/s soft tissue neck for bilat. anterior cervical lymph node enlargemen t. [id number] Dylan Tolliver MD [facility] [employer] [address] [place] [address] 12/17/2023 14:22:24 12/17/2023 15:09:14 Occipital headache 588609 R51.9 Trial of prednisone 50 mg 1 tablet p.o. daily x5 days to see if this aborts occipital headache. This may be an occipital neuralgia that is currently flared up. We will also allow for a low dose of Jacobson 5/325 mg every 8 hours as needed for breakthrou gh pain. Patient will call and give us an update in the next 3-5 days [id number] Dylan Tolliver MD [facility] [employer] [address] [place] [address] 03/19/2024 13:59:21 03/19/2024 15:30:01 Body mass index 25-29 - overweight 835242944 Z68.25 BMI is 25.1 Overweight 740990901 E66 .3 Her BMI of 25.1 is not of any concern at the age of 73. She exercises and eats healthy Hyperlipidemia 08974596 E78.5 Continue simvastati n 40 mg daily. Labs are up-to-date and can be completed annually Long-term drug therapy 640745564 Z79.899 All labs are up-to-date Loss of hair 966133299 L 65.9 Patient would like to try a very low dose of minoxidil therapy we will agree to a half a tablet daily to see if this helps overall with her hair loss. Benign ess ential hypertension 1335736 I10 Patient remains off of her hypertensi ve medication and she will continue to monitor her readings at home. If blood pressure readings are consistent ly 140/80 or above I would recommend she start taking half a tablet of her valsartan 160 mg therapy. [id number] Dylan Tolliver MD [facility] [employer] [address] [place] [address] 08/09/2024 10:27:33 08/09/2024 11:33:32 Body mass index 25-29 - overweight 699207385 Z68.25 BMI is 25.6 Hyperlipidemia 31425281 E78.5 Continue simvastati n 40 mg daily. Refill given an updated fasting lipid panel is due Benign ess ential hypertension 4088837 I10 BP is 110/80 today, now on HALF tab of valsartan hctz 160/12.5mg daily Overweight 715971908 E66 .3 Her BMI of 25.1 is not of any concern at the age of 73. She exercises and eats healthy Long-term drug therapy 061305915 Z79.899 Routine labs were ordered [id number] Dylan Tolliver MD [facility] [employer] [address] [place] [address] 02/07/2025 11:00:59 02/07/2025 11:54:34 Overweight in adulthood with body mass index of 25 or more but less than 30 767618912 E66.3 Z68.25 9516607103 BMI is 25.8 Benign ess ential hypertension 9881320 I10 BP is 130/80 today, now on HALF tab of valsartan hctz 160/12.5mg daily Hyperlipidemia 76805110 E78.5 Continue simvastati n 40 mg daily. Next set of labs do fasting in July Long-term drug therapy 617802403 Z79.899 Routine labs were ordered for July 2025 Impaired f asting glycemia 714151181 R73.01 826789 5.6% current A1c improved. Follow again in July Pain of le ft shoulder joint 8777128621 9172765 M25.512 191312 Patient does have some left shoulder pain that is been bothering her the last few months. We will check a baseline x-ray to evaluate for osteoarthr itis and send home some exercises and stretches Health Concerns Section Related Observation LastModified by Organization Detai ls LastModified Time None Recorded Concern Status LastModified by Organization Details LastModified Time None Recorded Advance Directives Directive Y: Payers Insurance Date Sequence Insurance Name Policy Number Policy Hernandez Covered Member ID Hernandez Member ID Guarantor Name 02/28/2025 1 [facility] [employer] Freddy Jessica [id number] Casie Jessica Notes Date Note Type Note Provider Name and Address Organization Details Recorded Time 4 text/html Upper Respiratory SymptomsReported by PatientUpper Respiratory SymptomsFor quality, patient reportssharp throat pain. For associated symptoms, patient reportssore throatbut reportsno sputum production,no shortness of breath,no wheezing,no sweats,no fever,no morning cough, andno rash(tender lymph nodes). For location, patient reportsthroat. For severity, patient reportsmoderate. For duration, patient reportssymptoms lasting over 2 weeks. For context, patient reportsno sick contacts,no foreign travel, andnon-smoker. For modifying factors, patient reportsotc medication. LANDRY Medellin Attn: Accounting,[address] [facility], [place], [address], [facility] 11/30/2023 01:12:20 4 text/html states that she is having a throbbing pain in her right/back side of her head, states that she has been taking motrin since friday when she noticed it states that she hasn't be able to get sleep. States that she had a deep cleaning done on her teeth the week before isn't syre if its in relation to that or not.pt. states that she would also like to discuss her cholestrol LANDRY Medellin Attn: Accounting,[address] [facility], [place], [address], [facility] 12/31/2023 20:58:26 4 text/html HyperlipidemiaReported by PatientPatient is on simvastatin 40 mg daily and stable. Labs are still up-to-date from October of this year HypertensionReported by PatientPatient was previously on valsartan hydrochlorothiazide therapy but her data processing specialist acquaintance stopped it due to her having lower pressure readings at times at home. Her pressure is a little bit borderline today without medication LANDRY Medellin Attn: Accounting,[address] [facility], [place], [address], [facility] 04/04/2024 17:56:41 5 text/html HyperlipidemiaReported by PatientPatient is on simvastatin 40 mg daily and stable. Labs are still up-to-date from October of this year HypertensionReported by PatientPatient was previously on valsartan hydrochlorothiazide therapy but her data processing specialist acquaintance stopped it due to her having lower pressure readings at times at home. Her pressure was increasing more recently so she restarted half a tablet of her valsartan 160/hydrochlorothiazide 12.5 mg daily LANDRY Medellin Attn: Accounting,[address] [facility], [place], [address], [facility] 08/29/2024 20:30:48 5 text/html HyperlipidemiaReported by PatientPatient is on simvastatin 40 mg daily and stable. Labs are still up-to-date from October this year HypertensionReported by PatientPatient was previously on valsartan hydrochlorothiazide therapy but her data processing specialist acquaintance stopped it due to her having lower pressure readings at times at home. Her pressure was increasing more recently so she restarted half a tablet of her valsartan 160/hydrochlorothiazide 12.5 mg daily LANDRY Medellin Attn: Accounting,[address] [facility], [place], [address], [facility] 02/26/2025 17:20:37 OBGyn Episode No OBEpisode recorded.
--- OUTSIDE RECORDS SUMMARY | 2025-03-18 07:29 | XMS_ITS | Encounter Summary ---
Author Organization [facility] Healthcare Address [address] [place] [address] Care Team Providers Care Motorcycle Repairer Name Role Phone Vonda Proctor Primary Care Pr ovider Encounter Details Date Type Department Care Team (Late st Contact Info) Description 08/10/2021 Telephone [facility] Advanced Medicine Radiation Oncology [address] [facility] [place] [address] Jumana Wilkins RN Social History Tobacco Use Types Packs/Day Years Used Date Smoking Tobacco: Never Smokeless Tobacco: Never Alcohol Use Standard Drinks/Week Comments Yes 1 (1 standard drink = 0.6 oz pur e alcohol) socially Comments Unknown Sex and Gender Information Value Date Recorded Sex Assigned at Not on file 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
== END 2025-03-18 07:25 | disposition home or self-care (01) ==
PROVIDERS: PCP Physician Assistant; Visit Provider Internal Medicine Endocrinology, Diabetes & Metabolism
DX: M85.89 Other specified disorders of bone density and structure, multiple sites (principal); M81.0 Age-related osteoporosis without current pathological fracture
CPT/HCPCS: 77080